=== PATIENT | female | born 1985 | race Caucasian/White ===

== ENCOUNTER 2016-10-17 09:08 | Emergency (ER) | payer SELFPAY ==
[~2016-10-17 09:08] MED LIST: DEPO-PROVER150 MG/ML IM; IBUPROFEN200 M1 PO; PERCOCET1 TA1 PO; SEROQUEL100 MG PO; VISTARIL25 MG PO
--- NOTE | 2016-10-17 10:18 | ED NURSING NOTES ---
Clinical Report - Nurses [facility] [address] [place] [address] 10/17/2016 9:09 Patient: LUCRECIA FLORES TRIAGE Triage time 09:56 Oct 17 2016. Acuity: LEVEL 4. Chief Complaint: NECK PAIN. Alert. No acute distress. KULDEEP COMA SCORE: [place] Coma Scale: 15- eyes open spontaneously (4); best verbal response- oriented x 4 (5); best motor response- obeys commands (6). --10:03 Kira Kirby R.N. 09:56 10/17/16. BP: 149/88. HR: 132. RR: 18. O2 saturation: 100%. Temp: 98.2 F. Pain level now 07/23. --10:03 Kira Kirby R.N. Weight: 58.9 kg stated. Height/Length: 62 inches Per Patient. BMI: 23.8. --09:56 Kira Kirby R.N. Medications Depo-Provera Intramuscular, every three months. Ibuprofen Oral, as needed. SEROquel Oral. Vistaril Oral 25 mg, at bedtime. --10:00 Kira Kirby R.N. Melatonin Oral. --10:01 Kira Kirby R.N. Medication/allergy information source: the patient. --10:03 Kira Kirby R.N. Allergies Hydrocodone.(nausea) --10:00 Kira Kirby R.N. History Arrived by private vehicle. Historian: patient. Primary physician ([facility]). ( Sledding yesterday, fell off sled, had LOC pt states, c/o neck pain. 07/23. Took a Ibuprofen.). This started yesterday. History of recent trauma- (sledding accident). 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 PAST MEDICAL HX: Tetanus status: up-to-date. Immunizations: up-to-date and seasonal influenza. Last normal menstrual period- depo. Uses depo implants. Denies current . SOCIAL HX: Smoker- current status unknown (cigarette). Occasional alcohol use. No drug use. FALL RISK ASSESSMENT: Fall risk assessment completed. No fall risk identified. NUTRITIONAL RISK ASSESSMENT: The nutritional risk assessment revealed no deficiencies. FUNCTIONAL ASSESSMENT: Functional assessment: no impairments noted. LEARNING NEEDS ASSESSMENT: The learning needs assessment revealed no barriers. SKIN INTEGRITY ASSESSMENT: Skin integrity risk assessment completed. No skin integrity risk identified. --10:03 Kira Kirby R.N. PROBLEMS: Hypertension. Vomiting. Hernia. Bronchitis. Pneumonia. Bronchiolitis. Neck Pain. Tension-Type Headache. Myofascial Strain. Cervical Strain. Back Pain. Abdominal Pain. Gastroenteritis. Abnormal Test. Chronic Headache. Lumbar Strain. UTI - Urinary Tract Infection. Migraine Headache. Headache. Contact Dermatitis. Immunizations. LNMP - Last Normal Menstrual Period. --10:02 Kira Kirby R.N. ADDITIONAL SURGERIES: Hernia Repair. Umbilical Hernia Repair. Urologic Surgery at 2 years. --10:02 Kira Kirby R.N. Interventions ID band on patient. To room. --10:03 Kira Kirby R.N. DISPOSITION / DISCHARGE Condition at departure: improved. No learning barriers present. Discharge instructions provided and reviewed with the patient. Reviewed medication(s) side effects, precautions, dosing and course information. Prescription(s) given to the patient. Patient verbalized understanding. Written instructions provided in [place]. The patient was discharged home. She left the Emergency Department ambulatory and via private vehicle. Patient driving. Medication list reviewed and validated. --10:46 Oralia Seo R.N. 10:44 10/17/16. BP: 144/93. HR: 124. RR: 20. O2 saturation: 100%. Temp: deferred. Pain level now: 12/21. 09:56 10/17/16. BP: 149/88. HR: 132. RR: 18. O2 saturation: 100%. Temp: 98.2 F. Pain level now 07/23. --10:46 Oralia Seo R.N. Locked/Released at 10/17/2016 10:46 by Oralia Seo R.N.
--- NOTE | 2016-10-17 10:18 | ED NURSING NOTES ---
Clinical Report - Nurses [facility] [address] [place] [address] 10/17/2016 9:09 Patient: LUCRECIA FLORES TRIAGE Triage time 09:56 Oct 17 2016. Acuity: LEVEL 4. Chief Complaint: NECK PAIN. Alert. No acute distress. KULDEEP COMA SCORE: [place] Coma Scale: 15- eyes open spontaneously (4); best verbal response- oriented x 4 (5); best motor response- obeys commands (6). --10:03 Kira Kirby R.N. 09:56 10/17/16. BP: 149/88. HR: 132. RR: 18. O2 saturation: 100%. Temp: 98.2 F. Pain level now 07/23. --10:03 Kira Kirby R.N. Weight: 58.9 kg stated. Height/Length: 62 inches Per Patient. BMI: 23.8. --09:56 Kira Kirby R.N. Medications Depo-Provera Intramuscular, every three months. Ibuprofen Oral, as needed. SEROquel Oral. Vistaril Oral 25 mg, at bedtime. --10:00 Kira Kirby R.N. Melatonin Oral. --10:01 Kira Kirby R.N. Medication/allergy information source: the patient. --10:03 Kira Kirby R.N. Allergies Hydrocodone.(nausea) --10:00 Kira Kirby R.N. History Arrived by private vehicle. Historian: patient. Primary physician ([facility]). ( Sledding yesterday, fell off sled, had LOC pt states, c/o neck pain. 07/23. Took a Ibuprofen.). This started yesterday. History of recent trauma- (sledding accident). 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 PAST MEDICAL HX: Tetanus status: up-to-date. Immunizations: up-to-date and seasonal influenza. Last normal menstrual period- depo. Uses depo implants. Denies current . SOCIAL HX: Smoker- current status unknown (cigarette). Occasional alcohol use. No drug use. FALL RISK ASSESSMENT: Fall risk assessment completed. No fall risk identified. NUTRITIONAL RISK ASSESSMENT: The nutritional risk assessment revealed no deficiencies. FUNCTIONAL ASSESSMENT: Functional assessment: no impairments noted. LEARNING NEEDS ASSESSMENT: The learning needs assessment revealed no barriers. SKIN INTEGRITY ASSESSMENT: Skin integrity risk assessment completed. No skin integrity risk identified. --10:03 Kira Kirby R.N. PROBLEMS: Hypertension. Vomiting. Hernia. Bronchitis. Pneumonia. Bronchiolitis. Neck Pain. Tension-Type Headache. Myofascial Strain. Cervical Strain. Back Pain. Abdominal Pain. Gastroenteritis. Abnormal Test. Chronic Headache. Lumbar Strain. UTI - Urinary Tract Infection. Migraine Headache. Headache. Contact Dermatitis. Immunizations. LNMP - Last Normal Menstrual Period. --10:02 Kira Kirby R.N. ADDITIONAL SURGERIES: Hernia Repair. Umbilical Hernia Repair. Urologic Surgery at 2 years. --10:02 Kira Kirby R.N. Interventions ID band on patient. To room. --10:03 Kira Kirby R.N. DISPOSITION / DISCHARGE Condition at departure: improved. No learning barriers present. Discharge instructions provided and reviewed with the patient. Reviewed medication(s) side effects, precautions, dosing and course information. Prescription(s) given to the patient. Patient verbalized understanding. Written instructions provided in Slovak. The patient was discharged home. She left the Emergency Department ambulatory and via private vehicle. Patient driving. Medication list reviewed and validated. --10:46 Oralia Seo R.N. 10:44 10/17/16. BP: 144/93. HR: 124. RR: 20. O2 saturation: 100%. Temp: deferred. Pain level now: 12/21. 09:56 10/17/16. BP: 149/88. HR: 132. RR: 18. O2 saturation: 100%. Temp: 98.2 F. Pain level now 07/23. --10:46 Oralia Seo R.N. Locked/Released at 10/17/2016 10:46 by Oralia Seo R.N.
--- NOTE | 2016-10-17 10:18 | ED CLINICAL REPORT ---
Clinical Report - Physicians/Mid Levels [facility] [address] [place] [address] 10/17/2016 9:09 Patient: LUCRECIA FLORES Arrived- By private vehicle. Historian- patient. HISTORY OF PRESENT ILLNESS Location of injuries- head. Chief Complaint: INJURY TO HEAD and INJURY TO NECK. The injury occurred yesterday. [place] a park. ( Patient reports that she was sledding. Patient reports that she went over a bump and fell. Reports loss of consciousness. Reports the incident occurred yesterday. Patient reports being ambulatory since then. No numbness, teething, weakness. Patient reports that the loss of consciousness was brief. Reports that she had awoken to her friends trying to get her to Wake up.). The patient complains of mild pain. The patient sustained a blow to the head and had loss of consciousness. No neck pain or seizure. Not dazed. REVIEW OF SYSTEMS No hearing loss, nausea, chest pain, depression or weakness. No loss of vision, vomiting, difficulty breathing, bladder dysfunction or laceration. All systems otherwise negative, except as recorded above. PAST HISTORY See nurses notes. Tetanus immunization status is up-to-date. Medications: Melatonin Oral. Depo-Provera Intramuscular, every three months. Ibuprofen Oral, as needed. SEROquel Oral. Vistaril Oral 25 mg, at bedtime. Allergies: Hydrocodone.(nausea). ADDITIONAL NOTES The nursing notes have been reviewed. PHYSICAL EXAM Vital Signs: 10/17/2016 09:56 BP: 149/88. HR: 132. RR: 18. O2 saturation: 100%. Temp: 98.2 F. Blood pressure normal. Oxygen saturation normal. Appearance: Alert. No acute distress. Head: Head non-tender. No swelling of head. No Hernández's sign or raccoon eyes. Eyes: Pupils equal, round and reactive to light. Pupillary exam: Right pupil 3mm, round and reactive to light directly and consensually and with accommodation. Left pupil: 3mm, round and reactive to light directly and consensually and with accommodation. EOM intact. ENT: No hemotympanum. Pharynx abnormal. Dental injury present. No malocclusion. Neck: No decreased ROM or muscle spasm in the neck. No pain with movement of head/neck. Painless ROM. Neck non-tender. No vertebral tenderness. CVS: Heart sounds normal. Pulses normal. Respiratory: Breath sounds normal. Chest nontender. (No bruising or ecchymosis). Abdomen: Soft and nontender. No organomegaly. (no bruising or ecchymosis). Back: No tenderness. ROM normal. No tenderness, vertebral point tenderness or muscle spasm. Skin: Skin intact. Skin warm and dry. Normal skin color. Normal skin turgor. Extremities: Normal inspection. Pelvis stable. Extremities atraumatic. Neuro: Oriented X 3. Mood/affect normal. Speech normal. No motor deficit. Normal gait. No sensory deficit. PROGRESS AND PROCEDURES Course of Care: the patient is a 31-year-old female presenting for evaluation of injury following sledding accident. Patient has no neurovascular compromise at this time. Had discussion with patient in regards to symptoms. Loss of consciousness was brief. Patient is not having any nausea and vomiting. Had discussion with patient in regards to risks and benefits of CT scan. Patient declines CT scan at this time after having discussion with risks of radiation exposure and potential cancer later on in life. Patient reports that the incident occurred yesterday and feels that something would've happened if there was a significant injury. Patient is appropriate and alert and oriented. Do not fill in force patient to undergo invasive medical procedures that carries substantial risks at this time. Patient ports that she is just here because herfriends have told her to go to the emergency department for evaluation. Patient is neurovascularly intact. Upon discharge and reevaluation, patient is still noted to be tachycardic. Had discussion with patient in regards to tachycardia. Patient states that she is just feels anxious and would like to go home. Did not feel can keep patient here in the hospital against her will. Had discussion about return precautions and what to look out for. Discussed the patient workup, diagnosis, home care, follow-up, and return precautions. All questions answered. The patient expressed understanding of these instructions and was agreeable to them. Disposition: Discharged. Condition: good. CLINICAL IMPRESSION 10/17/2016 09:56 BP: 149/88. HR: 132. RR: 18. O2 saturation: 100%. Temp: 98.2 F. Blood pressure normal. Oxygen saturation normal. Minor closed head injury. Loss of consciousness for less than one minute. Memory loss. INSTRUCTIONS Warnings: TETANUS: You were given a tetanus shot during your visit. Make a note for future reference. GENERAL WARNINGS: Return or contact your physician immediately if your condition worsens or changes unexpectedly, if not improving as expected, or if other problems arise. Specifically return if pain, vomiting, bleeding, breathing difficulty or fever. abnormal behavior, vision changes, or other concerns. Your Current Medications: CONTINUE TAKING THE FOLLOWING MEDICATIONS: Depo-Provera Intramuscular : every three months. Ibuprofen Oral : prn. Melatonin Oral. SEROquel Oral. Vistaril Oral : 25 mg at bedtime. Prescription Medications: Zofran ODT 4 mg: take 1 orally every 8 hours as needed for nausea and vomiting. Dispense ten (10). No refill. Substitution is permissible. Hydrocodone/APAP 5mg / 325mg: take 1 orally every 6 hours as needed for pain. Dispense twelve (12). No refill. Follow-up: Return to the emergency department as needed. Follow up with your doctor in three days. Reason for referral: recheck today's concerns. Summary of care provided to via paper. Screening today revealed the patient's blood pressure to be in the normal range. Understanding of the discharge instructions verbalized by patient. (Electronically signed by Bennett Dumont Dr. 10/23/2016 13:43)
--- NOTE | 2016-10-23 13:44 | ED MAR SUMMARY ---
..... Medication Administration Record [facility] [address] [place], [place] [id number] Patient: LUCRECIA FLORES Visit ID: [id number] 31y, F Weight: 58.9 kg Height/Length: 62 in BMI: 23.8 ALLERGIES: Hydrocodone
--- NOTE | 2016-10-23 13:44 | ED MAR SUMMARY ---
..... Medication Administration Record Merged With [facility] [address] [place], [place] [id number] Patient: LUCRECIA FLORES Visit ID: [id number] 31y, F Weight: 58.9 kg Height/Length: 62 in BMI: 23.8 ALLERGIES: Hydrocodone
--- NOTE | 2016-10-23 13:44 | ED DISCHARGE INSTRUCTIONS ---
Patient: LUCRECIA FLORES General Instructions [facility] VisitID: [id number] [place] [address] 31y, F Registration Date/Time: 10/17/2016 10/17/2016 09:56 BP: 149/88. HR: 132. RR: 18. O2 saturation: 100%. Temp: 98.2 F. Blood pressure normal. Oxygen saturation normal. Minor closed head injury. Loss of consciousness for less than one minute. Memory loss. INSTRUCTIONS Warnings: TETANUS: You were given a tetanus shot during your visit. Make a note for future reference. GENERAL WARNINGS: Return or contact your physician immediately if your condition worsens or changes unexpectedly, if not improving as expected, or if other problems arise. Specifically return if pain, vomiting, bleeding, breathing difficulty or fever. abnormal behavior, vision changes, or other concerns. Your Current Medications: CONTINUE TAKING THE FOLLOWING MEDICATIONS: Depo-Provera Intramuscular : every three months. Ibuprofen Oral : prn. Melatonin Oral. SEROquel Oral. Vistaril Oral : 25 mg at bedtime. Prescription Medications: Zofran ODT 4 mg: take 1 orally every 8 hours as needed for nausea and vomiting. Dispense ten (10). No refill. Substitution is permissible. Hydrocodone/APAP 5mg / 325mg: take 1 orally every 6 hours as needed for pain. Dispense twelve (12). No refill. Follow-up: Return to the emergency department as needed. Follow up with your doctor in three days. Reason for referral: recheck today's concerns. Summary of care provided to via paper. Screening today revealed the patient's blood pressure to be in the normal range. Understanding of the discharge instructions verbalized by patient. ADDITIONAL INFORMATION Head Injury, No Wake-Up (Adult) You have had a head injury. It does not appear serious at this time. Symptoms of a more serious problem (concussion, bruising, or bleeding in the brain) may appear later. Therefore, watch for the WARNING SIGNS listed below. Home Care: Your healthcare provider will tell you whether its okay to drive. If so, you can drive yourself home. For the next day or so, be careful when driving or using heavy machinery until you are sure you have no delayed symptoms. During the next 24 hours someone must stay with you to check for the signs below. It is not necessary to stay awake or be awakened during the night. If you have swelling of the face or scalp, apply an ice pack (ice cubes in a plastic bag, wrapped in a towel) for 20 minutes. Do this every 1-2 hours until the swelling starts to go down. Do not use aspirin or ibuprofen (Motrin, Advil) after a head injury.You may use acetaminophen (Tylenol)to control pain, unless another pain medicine was prescribed. [NOTE: If you have chronic liver or kidney disease or ever had a stomach ulcer or GI bleeding, talk with your doctor before using these medicines.] For the next 24 hours: Do not take alcohol, sedatives or medicines that make you sleepy. Avoid strenuous activities. No lifting or straining. If you have had any symptoms of a concussion today (nausea, vomiting, dizziness, confusion, headache, memory loss or if you were knocked out), do not return to sports or any activity that could result in another head injury until all symptoms are gone and you have been cleared by your doctor. A second head injury before fully recovering from the first one can lead to serious brain injury. Follow Up with your doctor if symptoms are not improving after 24 hours, or as directed. [NOTE: A radiologist will review any X-rays or CT scans that were taken. We will notify you of any new findings that may affect your care.] Get Prompt Medical Attention if any of the followingWARNING SIGNS occur: Repeated vomiting Severe or worsening headache or dizziness Unusual drowsiness, or unable to awaken as usual Confusion or change in behavior or speech, memory loss, blurred vision Convulsion (seizure) Increasing scalp or face swelling Redness, warmth or pus from the swollen area Fluid drainage or bleeding from the nose or ears Concussion (No Wake-Up) A concussion happens when you hit your head with enough force to shake up the brain. This may cause you to lose consciousness be "knocked out" - but not always. Depending on how hard you hit your head, it will take from a few hours up to a few days to get better. Sometimes symptoms may last a few months or longer. This is called post-concussion syndrome. At first, you may have a headache, nausea, vomiting, or dizziness. You may also have problems concentrating or remembering things. This is normal. Symptoms should get better as the hours and days go by. Symptoms that get worse could be a sign of a more serious injury. This might be a bruise or bleeding in the brain. Thats why its important to watch for the warning signs listed below. Home care Follow these tips to help care for yourself at home: During the next day (24 hours) someone must stay with you to check for the signs below. If your face or scalp swells, apply an ice pack for 20 minutes every 1 to 2 hours. Do this until the swelling starts to go down. You can make an ice pack by putting ice cubes in a plastic bag and wrapping the bag in a towel. for 20 minutes every 1-2 hours until the swelling starts to go down. You may use acetaminophen to control pain, unless another pain medicine was prescribed. If you have chronic liver or kidney disease, talk with your doctor before using these medicines. Also talk with your doctor if you ever had a stomach ulcer or GI bleeding. For the next 24 hours: Dont drink alcohol or take sedatives or medicines that make you sleepy. Dont drive or operate machinery. Avoid doing anything strenuous. Dont lift or strain. Dont return to sports or any activity that could cause you to hit your head until all symptoms are gone and you have been cleared by your doctor. A second head injury before fully recovering from the first one can lead to serious brain injury. Follow-up care Follow up with your doctor in 1 week, or as directed. Note: A radiologist will review any X-rays or CT scans that were taken. You will be told of any new findings that may affect your care. When to seek medical care Get prompt medical attention if any of these occur: Repeated vomiting Headache or dizziness that is severe or gets worse Unusual drowsiness, or unable to wake up as usual Confusion or change in behavior or speech, or memory loss Blurred vision Convulsion (seizure) Swelling on the scalp or face that gets worse Redness, warmth, or pus from the swollen area Fluid draining from or bleeding from the nose or ears Ondansetron Oral disintegrating tablet What is this medicine? ONDANSETRON (on MARIANA se tobias) is used to treat nausea and vomiting caused by chemotherapy. It is also used to prevent or treat nausea and vomiting after surgery. How should I use this medicine? These tablets are made to dissolve in the mouth. Do not try to push the tablet through the foil backing. With dry hands, peel away the foil backing and gently remove the tablet. Place the tablet in the mouth and allow it to dissolve, then swallow. While you may take these tablets with water, it is not necessary to do so. Talk to your medical interpreter regarding the use of this medicine in children. Special care may be needed. What side effects may I notice from receiving this medicine? Side effects that you should report to your doctor or health healthcare network pricing consultant as soon as possible: allergic reactions like skin rash, itching or hives, swelling of the face, lips, or tongue breathing problems dizziness fast or irregular heartbeat feeling faint or lightheaded, falls fever and chills swelling of the hands and feet tightness in the chest Side effects that usually do not require medical attention (report to your doctor or health healthcare network pricing consultant if they continue or are bothersome): constipation or diarrhea headache What may interact with this medicine? Do not take this medicine with any of the following medications: -apomorphine -cisapride -dofetilide -dronedarone -pimozide -thioridazine -ziprasidone This medicine may also interact with the following medications: -carbamazepine -phenytoin -rifampicin -tramadol -other medicines that prolong the QT interval (cause an abnormal heart rhythm) What if I miss a dose? If you miss a dose, take it as soon as you can. If it is almost time for your next dose, take only that dose. Do not take double or extra doses. Where should I keep my medicine? Keep out of the reach of children. Store between 2 and 30 degrees C (36 and 86 degrees F). Throw away any unused medicine after the expiration date. What should I tell my health care provider before I take this medicine? They need to know if you have any of these conditions: heart disease history of irregular heartbeat liver disease low levels of magnesium or potassium in the blood an unusual or allergic reaction to ondansetron, granisetron, other medicines, foods, dyes, or preservatives or trying to get breast-feeding What should I watch for while using this medicine? Check with your doctor or health healthcare network pricing consultant as soon as you can if you have any sign of an allergic reaction. Hydrocodone Bitartrate, Acetaminophen Oral tablet What is this medicine? ACETAMINOPHEN; HYDROCODONE (a set a FAISAL tip fen; caroline droe KOE done) is a pain reliever. It is used to treat mild to moderate pain. How should I use this medicine? Take this medicine by mouth. Swallow it with a full glass of water. Follow the directions on the prescription label. If the medicine upsets your stomach, take the medicine with food or milk. Do not take more than you are told to take. Talk to your medical interpreter regarding the use of this medicine in children. This medicine is not approved for use in children. What side effects may I notice from receiving this medicine? Side effects that you should report to your doctor or health healthcare network pricing consultant as soon as possible: allergic reactions like skin rash, itching or hives, swelling of the face, lips, or tongue breathing problems confusion feeling faint or lightheaded, falls stomach pain yellowing of the eyes or skin Side effects that usually do not require medical attention (report to your doctor or health healthcare network pricing consultant if they continue or are bothersome): nausea, vomiting stomach upset What may interact with this medicine? alcohol antihistamines isoniazid medicines for depression, anxiety, or psychotic disturbances medicines for sleep muscle relaxants naltrexone narcotic medicines (opiates) for pain phenobarbital ritonavir tramadol What if I miss a dose? If you miss a dose, take it as soon as you can. If it is almost time for your next dose, take only that dose. Do not take double or extra doses. Where should I keep my medicine? Keep out of the reach of children. This medicine can be abused. Keep your medicine in a safe place to protect it from theft. Do not share this medicine with anyone. Selling or giving away this medicine is dangerous and against the law. Store at room temperature between 15 and 30 degrees C (59 and 86 degrees F). Protect from light. Keep container tightly closed. Throw away any unused medicine after the expiration date. Discard unused medicine and used packaging carefully. Pets and children can be harmed if they find used or lost packages. What should I tell my health care provider before I take this medicine? They need to know if you have any of these conditions: brain tumor Crohn's disease, inflammatory bowel disease, or ulcerative colitis drink more than 3 alcohol-containing drinks per day drug abuse or addiction head injury heart or circulation problems kidney disease or problems going to the bathroom liver disease lung disease, asthma, or breathing problems an unusual or allergic reaction to acetaminophen, hydrocodone, other opioid analgesics, other medicines, foods, dyes, or preservatives or trying to get breast-feeding What should I watch for while using this medicine? Tell your doctor or health healthcare network pricing consultant if your pain does not go away, if it gets worse, or if you have new or a different type of pain. You may develop tolerance to the medicine. Tolerance means that you will need a higher dose of the medicine for pain relief. Tolerance is normal and is expected if you take the medicine for a long time. Do not suddenly stop taking your medicine because you may develop a severe reaction. Your body becomes used to the medicine. This does NOT mean you are addicted. Addiction is a behavior related to getting and using a drug for a non-medical reason. If you have pain, you have a medical reason to take pain medicine. Your doctor will tell you how much medicine to take. If your doctor wants you to stop the medicine, the dose will be slowly lowered over time to avoid any side effects. You may get drowsy or dizzy when you first start taking the medicine or change doses. Do not drive, use machinery, or do anything that may be dangerous until you know how the medicine affects you. Stand or sit up slowly. There are different types of narcotic medicines (opiates) for pain. If you take more than one type at the same time, you may have more side effects. Give your health care provider a list of all medicines you use. Your doctor will tell you how much medicine to take. Do not take more medicine than directed. Call emergency for help if you have problems breathing. The medicine will cause constipation. Try to have a bowel movement at least every 2 to 3 days. If you do not have a bowel movement for 3 days, call your doctor or health healthcare network pricing consultant. Too much acetaminophen can be very dangerous. Do not take Tylenol (acetaminophen) or medicines that contain acetaminophen with this medicine. Many non-prescription medicines contain acetaminophen. Always read the labels carefully. You have been given the following additional information: HEAD INJURY, No Wake-Up (Adult) Concussion, No Wake-Up Ondansetron Oral disintegrating tablet Hydrocodone Bitartrate, Acetaminophen Oral tablet (Electronically signed by Bennett Dumont Dr. 10/23/2016 13:43)
--- NOTE | 2016-10-23 13:44 | ED MED RECONCILIATION SUMMARY ---
Patient: LUCRECIA FLORES Medication Reconciliation Report [facility] VisitID: [id number] [address] [place] [address] 31y, F Registration Date/Time: 10/17/2016 Weight: 58.9 kg Height/Length: 62 in. BMI: 23.8 ALLERGIES: Hydrocodone The patient's Home Medications are listed below: CONTINUE TAKING THE FOLLOWING MEDICATIONS: Depo-Provera Intramuscular, every three months Ibuprofen Oral Melatonin Oral SEROquel Oral Vistaril Oral 25 mg, at bedtime The source(s) of the original Home Medication information: patient The following Medications were given to the patient in the Emergency Department: None. The following Medications were prescribed to the patient: Zofran ODT 4 mg: take 1 orally every 8 hours as needed for nausea and vomiting. Dispense ten (10). No refill. Substitution is permissible. -- Bennett Dumont Dr. Hydrocodone/APAP 5mg / 325mg: take 1 orally every 6 hours as needed for pain. Dispense twelve (12). No refill. -- Bennett Dumont Dr.
--- NOTE | 2016-10-23 13:44 | ED MED RECONCILIATION SUMMARY ---
Patient: LUCRECIA FLORES Medication Reconciliation Report [facility] VisitID: [id number] [address] [place] [address] 31y, F Registration Date/Time: 10/17/2016 Weight: 58.9 kg Height/Length: 62 in. BMI: 23.8 ALLERGIES: Hydrocodone The patient's Home Medications are listed below: CONTINUE TAKING THE FOLLOWING MEDICATIONS: Depo-Provera Intramuscular, every three months Ibuprofen Oral Melatonin Oral SEROquel Oral Vistaril Oral 25 mg, at bedtime The source(s) of the original Home Medication information: patient The following Medications were given to the patient in the Emergency Department: None. The following Medications were prescribed to the patient: Zofran ODT 4 mg: take 1 orally every 8 hours as needed for nausea and vomiting. Dispense ten (10). No refill. Substitution is permissible. -- Bennett Dumont Dr. Hydrocodone/APAP 5mg / 325mg: take 1 orally every 6 hours as needed for pain. Dispense twelve (12). No refill. -- Bennett Dumont Dr.
== END 2016-10-17 10:42 | disposition home or self-care (01) ==
LOC: ED SRH 09:08
DX: S06.9X1A Unspecified intracranial injury with loss of consciousness of 30 minutes or less, initial encounter (principal); R41.3 Other amnesia; V00.221A Fall from sled, initial encounter; Y93.23 Activity, snow (alpine) (downhill) skiing, snowboarding, sledding, tobogganing and snow tubing; Y92.830 Public park as the place of occurrence of the external cause; Y99.9 Unspecified external cause status; I10 Essential (primary) hypertension; Z79.899 Other long term (current) drug therapy; Z88.5 Allergy status to narcotic agent

== ENCOUNTER 2016-11-01 01:17 | Emergency (ER) | payer SELFPAY ==
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
--- NOTE | 2016-11-01 08:28 | ED ORDER SUMMARY ---
..... Patient: LUCRECIA FLORES OrderSheet [facility] VisitID: [id number] [address] [place] [address] 31y, F Registration Date/Time: 11/01/2016 ORDER SHEET Weight: 58.9 kg (stated) Allergies: Hydrocodone GENERAL ORDERS: MEDICATION ORDERS: Motrin PO 600 mg (NOW) (02:45 11/01/2016 Maurilio Peres) (2:53 HSoule) IV FLUIDS: ORDER SHEET NOTES: [Electronically signed by Edda Morley R.N. (03:17 11/01/2016)] [Electronically signed by Bennett Dumont Dr. (08:28 11/01/2016)] [Electronically locked/signed by Edda Morley R.N. (03:17 11/01/2016)]
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
--- NOTE | 2016-11-01 08:28 | ED MED RECONCILIATION SUMMARY ---
Patient: LUCRECIA FLORES Medication Reconciliation Report [facility] VisitID: [id number] [address] [place] [address] 31y, F Registration Date/Time: 11/01/2016 Weight: 58.9 kg Height/Length: 62 in. BMI: 23.8 ALLERGIES: Hydrocodone The patient's Home Medications are listed below: CONTINUE TAKING THE FOLLOWING MEDICATIONS: Depo-Provera Intramuscular, every three months Ibuprofen Oral Melatonin Oral Percocet Oral Suboxone Sublingual Vistaril Oral 25 mg, at bedtime The source(s) of the original Home Medication information: Not obtained. The following Medications were given to the patient in the Emergency Department: Motrin [PO] PO 600 mg, administered: 11/01/2016 2:48:00 AM The following Medications were prescribed to the patient: Acetaminophen (available over the counter): take according to label instructions. -- Bennett Dumont Dr. Motrin (available over the counter): take according to label instructions. -- Bennett Dumont Dr.
--- NOTE | 2016-11-01 08:28 | ED MAR SUMMARY ---
..... Medication Administration Record [facility] [address] [place] [address] Patient: LUCRECIA FLORES Visit ID: [id number] 31y, F Weight: 58.9 kg Height/Length: 62 in BMI: 23.8 ALLERGIES: Hydrocodone Given 02:48 11/01/2016 Sally Steiner, Medication Administered: MOTRIN [PO], Dose: 600 mg Tablets PO. Medication Ordered: Motrin PO 600 mg (NOW).
--- NOTE | 2016-11-01 08:28 | ED ORDER SUMMARY ---
..... Patient: LUCRECIA FLORES OrderSheet [facility] VisitID: [id number] [address] [place] [address] 31y, F Registration Date/Time: 11/01/2016 ORDER SHEET Weight: 58.9 kg (stated) Allergies: Hydrocodone GENERAL ORDERS: MEDICATION ORDERS: Motrin PO 600 mg (NOW) (02:45 11/01/2016 Maurilio Peres) (2:53 HSoule) IV FLUIDS: ORDER SHEET NOTES: [Electronically signed by Edda Morley R.N. (03:17 11/01/2016)] [Electronically signed by Bennett Dumont Dr. (08:28 11/01/2016)] [Electronically locked/signed by Edda Morley R.N. (03:17 11/01/2016)]
--- NOTE | 2016-11-01 08:28 | ED MED RECONCILIATION SUMMARY ---
Patient: LUCRECIA FLORES Medication Reconciliation Report [facility] VisitID: [id number] [address] [place] [address] 31y, F Registration Date/Time: 11/01/2016 Weight: 58.9 kg Height/Length: 62 in. BMI: 23.8 ALLERGIES: Hydrocodone The patient's Home Medications are listed below: CONTINUE TAKING THE FOLLOWING MEDICATIONS: Depo-Provera Intramuscular, every three months Ibuprofen Oral Melatonin Oral Percocet Oral Suboxone Sublingual Vistaril Oral 25 mg, at bedtime The source(s) of the original Home Medication information: Not obtained. The following Medications were given to the patient in the Emergency Department: Motrin [PO] PO 600 mg, administered: 11/01/2016 2:48:00 AM The following Medications were prescribed to the patient: Acetaminophen (available over the counter): take according to label instructions. -- Bennett Dumont Dr. Motrin (available over the counter): take according to label instructions. -- Bennett Dumont Dr.
--- NOTE | 2016-11-01 08:28 | ED MAR SUMMARY ---
..... Medication Administration Record [facility] [address] [place] [address] Patient: LUCRECIA FLORES Visit ID: [id number] 31y, F Weight: 58.9 kg Height/Length: 62 in BMI: 23.8 ALLERGIES: Hydrocodone Given 02:48 11/01/2016 Salyl Steiner, Medication Administered: MOTRIN [PO], Dose: 600 mg Tablets PO. Medication Ordered: Motrin PO 600 mg (NOW).
== END 2016-11-01 03:16 ==
LOC: ED SRH 01:17
DX: S09.90XA Unspecified injury of head, initial encounter (principal); V89.2XXA Person injured in unspecified motor-vehicle accident, traffic, initial encounter; Y93.I9 Activity, other involving external motion; Y92.410 Unspecified street and highway as the place of occurrence of the external cause; Y99.9 Unspecified external cause status; F17.200 Nicotine dependence, unspecified, uncomplicated; Z88.5 Allergy status to narcotic agent

== ENCOUNTER 2016-11-12 11:46 | Emergency (ER) | payer SELFPAY ==
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
--- NOTE | 2016-11-12 13:17 | ED CLINICAL REPORT ---
Clinical Report - Physicians/Mid Levels [facility] [address] [place] [address] 11/12/2016 11:46 Patient: LUCRECIA FLORES Time Seen: 13:46 Nov 12 2016. Arrived- By private vehicle. Historian- patient. HISTORY OF PRESENT ILLNESS Chief Complaint: NECK PAIN. Onset was just prior to arrival and it is still present. The quality is noted to be "pain". Additional history - 31-year-old female with neck pain over the last 4 days, with associated pain to her head, pain worsens with any movement, onset was upon awakening on Saturday the 27, pain is somewhat relieved with high-dose Motrin, patient has attended ice and heat to the area. Reports history of similar. In addition she had her younger child, step on her neck while she was laying on the floor, which did not alleviate her pain, rather worsen such. Denies any radiation of pain. H/O similar neck pain. Patient notes the possibility of an injury. REVIEW OF SYSTEMS No fever, chills, sore throat, cough or difficulty with urination. No urinary frequency or vaginal discharge. She has had a headache (off/ on). No nausea, vomiting, fever, prodromal symptoms or photophobia. No visual disturbances, numbness or weakness. All systems otherwise negative, except as recorded above. SOCIAL HISTORY Smoker- current status unknown. Alcohol use. No drug use. ADDITIONAL NOTES The nursing notes have been reviewed. PHYSICAL EXAM Vital Signs: 11/12/2016 12:45 BP: 132/84. HR: 77. RR: 14. O2 saturation: 98%. Temp: 98.2 F. Pain level now: 8/10. Appearance: Alert. No acute distress. Neck: Pain in the neck upon movement. Muscle spasm of the neck. No decreased ROM in the neck. No vertebral tenderness. Soft tissue tenderness. No meningeal signs. CVS: Normal heart rate and rhythm. Heart sounds normal. Respiratory: No respiratory distress. Breath sounds normal. No chest wall injury. Abdomen: Soft. Back: Normal inspection. No tenderness. Painless ROM. No vertebral point tenderness. Neuro: Oriented X 3. Mood/affect normal. No motor deficit. No sensory deficit. PROGRESS AND PROCEDURES Course of Care: There are no risks for spinal epidural abscess or hematoma as patient is without any risk factors such as IVDA or evidence of active infection, no midline tenderness to percussion. Hence I do not feel emergent imaging with an MRI is indicated. However I did discuss with the patient that if these symptoms develop, or if the pain does not resolve an MRI may need to be done outpatient, or in the ED if symptoms worsen acutely or new onset of the above mentioned symptoms develop. Patient is stable. Physical exam findings are improved. Symptoms better. Disposition: Discharged. CLINICAL IMPRESSION Acute cervical strain. INSTRUCTIONS Limit lifting. No strenuous activity. Rest. Prescription Medications: Valium 2 mg: take 1 orally every 12 hours for 5 days as needed for muscle spasm. Dispense ten (10). No refill. Substitution is permissible. Ultram 50 mg: take 1 orally every 6 hours for 3 days. Dispense fifteen (15). One refill. Substitution is permissible. Follow-up: Follow up with your doctor in four days. (Electronically signed by Collette Hawk P.A.-C 11/12/2016 13:50)
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
--- NOTE | 2016-11-12 13:53 | ED MED RECONCILIATION SUMMARY ---
Patient: LUCRECIA FLORES Medication Reconciliation Report [facility] VisitID: [id number] [address] [place] [address] 31y, F Registration Date/Time: 11/12/2016 Weight: 63.5 kg Height/Length: 62 in. BMI: 25.6 ALLERGIES: Hydrocodone The patient's Home Medications are listed below: THE FOLLOWING MEDICATIONS NEED TO BE RECONCILED: Depo-Provera Intramuscular, every three months Ibuprofen Oral Melatonin Oral Vistaril Oral 25 mg, at bedtime The source(s) of the original Home Medication information: patient The following Medications were given to the patient in the Emergency Department: None. The following Medications were prescribed to the patient: Valium 2 mg: take 1 orally every 12 hours for 5 days as needed for muscle spasm. Dispense ten (10). No refill. Substitution is permissible. -- Collette Hawk, P.A.-C Ultram 50 mg: take 1 orally every 6 hours for 3 days. Dispense fifteen (15). One refill. Substitution is permissible. -- Collette Hawk, P.A.-C
--- NOTE | 2016-11-12 13:53 | ED MED RECONCILIATION SUMMARY ---
Patient: LUCRECIA FLORES Medication Reconciliation Report [facility] VisitID: [id number] [address] [place] [address] 31y, F Registration Date/Time: 11/12/2016 Weight: 63.5 kg Height/Length: 62 in. BMI: 25.6 ALLERGIES: Hydrocodone The patient's Home Medications are listed below: THE FOLLOWING MEDICATIONS NEED TO BE RECONCILED: Depo-Provera Intramuscular, every three months Ibuprofen Oral Melatonin Oral Vistaril Oral 25 mg, at bedtime The source(s) of the original Home Medication information: patient The following Medications were given to the patient in the Emergency Department: None. The following Medications were prescribed to the patient: Valium 2 mg: take 1 orally every 12 hours for 5 days as needed for muscle spasm. Dispense ten (10). No refill. Substitution is permissible. -- Collette Hawk, P.A.-C Ultram 50 mg: take 1 orally every 6 hours for 3 days. Dispense fifteen (15). One refill. Substitution is permissible. -- Collette Hawk, P.A.-C
--- NOTE | 2016-11-12 13:53 | ED DISCHARGE INSTRUCTIONS ---
Patient: LUCRECIA FLORES General Instructions [facility] VisitID: [id number] [place] [address] 31y, F Registration Date/Time: 11/12/2016 Acute cervical strain. INSTRUCTIONS Limit lifting. No strenuous activity. Rest. Prescription Medications: Valium 2 mg: take 1 orally every 12 hours for 5 days as needed for muscle spasm. Dispense ten (10). No refill. Substitution is permissible. Ultram 50 mg: take 1 orally every 6 hours for 3 days. Dispense fifteen (15). One refill. Substitution is permissible. Follow-up: Follow up with your doctor in four days. ADDITIONAL INFORMATION Neck Sprain Or Strain A sudden force that causes turning or bending of the neck (such as in a car accident) can stretch or tear muscles (strain) and ligaments (sprain) and cause neck pain. Sometimes neck pain occurs after a simple awkward movement. In either case, muscle spasm is commonly present and contributes to the pain. Unless you had a forceful physical injury (for example, a car accident or fall), X-rays are usually not ordered for the initial evaluation of neck pain. If pain continues and dose not respond to medical treatment, X-rays and other tests may be performed at a later time. Home care The following guidelines will help you care for your injury at home: You may feel more soreness and spasm the first few days after the injury. Reduce your activity level until symptoms begin to improve. When lying down, use a comfortable pillow that supports the head and keeps the spine in a neutral position. The position of the head should not be tilted forward or backward. Use ice packs (ice in a plastic bag, wrapped in a towel) to treat acute pain. Apply for 20 minutes every 24 hours during the first two days. Then, begin local heat (hot shower, hot bath or heating pad) andmassageto reduce muscle spasm. Some patients feel best alternating hot and cold treatments, or just staying with one method only. Do what feels the best to you and gives the most relief. You may use acetaminophen or ibuprofen to control pain, unless another pain medicine was prescribed.If you have chronic liver or kidney disease or ever had a stomach ulcer or GI bleeding, talk with your doctor before using these medicines. Follow-up care Follow up with your physician or this facility if your symptoms do not show signs of improvement. Physical therapy may be needed. If you had X-rays today, they didnt show any broken bones, breaks, or fractures. Sometimes fractures dont show up on the first X-ray. Bruises and sprains can sometimes hurt as much as a fracture. These injuries can take time to heal completely. If your symptoms dont improve or they get worse, talk with your doctor. You may need a repeat X-ray. When to seek medical care Get prompt medical attention if any of the following occur: Pain becomes worse or spreads into your arms Weakness or numbness in one or both arms Neck Pain [No Trauma] There are several possible causes of neck pain without injury: You can get a minor ligament sprain or muscle strain from a sudden minor neck movement. Sleeping with your neck in an awkward position can also cause this. Some persons respond to emotional stress by tensing the muscles of their neck, shoulders and upper back. Chronic spasm in these muscles can cause neck pain and sometimes headaches. Gradualwear and tearof the joints in the spine can cause degenerative arthritis.This can be a source of occasional or chronic neck pain. With aging or repeated small injuries to the neck, the spinal disks (the cushions between each spinal bone) may bulge and put pressure on a nearby spinal nerve. This causes tingling, pain or numbness spreading from the neck to the shoulder, arm or hand on one side. Acute neck pain usually gets better in one to two weeks. Neck pain related to disk disease, arthritis in the spinal joints or spinal stenosis (narrowing of the spinal canal) can become chronic and last for months or years. Unless you had a forceful physical injury (for example, a car accident or fall), X-rays are usually not ordered for the initial evaluation of neck pain. If pain continues and does not respond to medical treatment, x-rays and other tests may be performed at a later time. Home Care: Rest and relax the muscles. Use a comfortable pillow that supports the head and keeps the spine in a neutral position. The position of the head should not be tilted forward or backward. A rolled up towel may help for a custom fit. Some persons find relief with heat (hot shower, hot bath or heating pad) and massage, while others prefer cold packs (crushed or cubed ice in a plastic bag, wrapped in a towel) . Try both and use the method that feels best for 20 minutes several times a day. You may use acetaminophen (Tylenol) or ibuprofen (Motrin, Advil) to control pain, unless another medicine was prescribed. [ NOTE : If you have chronic liver or kidney disease or ever had a stomach ulcer or GI bleeding, talk with your doctor before using these medicines.] Follow Up with your physician or this facility if your symptoms do not show signs of improvement after one week. Physical therapy or further tests may be needed. [NOTE: A radiologist will review any X-rays or CT scans that were taken. We will notify you of any new findings that may affect your care.] Get Prompt Medical Attention if any of the following occur: Pain becomes worse or spreads into one or both arms Weakness or numbness in one or both arms Increasing headache Neck swelling, difficulty or painful swallowing Fever of 100.4F (38C) or higher, or as directed by your healthcare provider You have been given the following additional information: Neck Sprain/Strain Neck Pain, No Trauma Limit lifting. No strenuous activity. Rest. (Electronically signed by Collette Hawk P.A.-C 11/12/2016 13:50)
--- NOTE | 2016-11-12 13:53 | ED MAR SUMMARY ---
..... Medication Administration Record [facility] [address] [place], [place] [id number] Patient: LUCRECIA FLORES Visit ID: [id number] 31y, F Weight: 63.5 kg Height/Length: 62 in BMI: 25.6 ALLERGIES: Hydrocodone
--- NOTE | 2016-11-12 13:53 | ED MAR SUMMARY ---
..... Medication Administration Record [facility] [address] [place], [place] [id number] Patient: LUCRECIA FLORES Visit ID: [id number] 31y, F Weight: 63.5 kg Height/Length: 62 in BMI: 25.6 ALLERGIES: Hydrocodone
== END 2016-11-12 13:22 | disposition home or self-care (01) ==
LOC: ED SRH 11:46
DX: M54.2 Cervicalgia (principal); X50.0XXA Overexertion from strenuous movement or load, initial encounter; I10 Essential (primary) hypertension; Z79.899 Other long term (current) drug therapy; Z88.5 Allergy status to narcotic agent

== ENCOUNTER 2016-12-01 09:50 | Emergency (ER) | payer SELFPAY ==
--- NOTE | 2016-12-01 11:13 | ED ORDER SUMMARY ---
..... Patient: LUCRECIA FLORES OrderSheet [facility] VisitID: [id number] [address] [place] [address] 31y, F Registration Date/Time: 12/01/2016 ORDER SHEET Weight: 62.5 kg (stated) Allergies: Hydrocodone GENERAL ORDERS: MEDICATION ORDERS: Toradol IM 60 mg (NOW) (10:32 12/01/2016 Sridhar Peres) (10:45 Kasandra Schmitt) IV FLUIDS: ORDER SHEET NOTES: [Electronically signed by Gregg Lazaro Dr. (10:47 12/01/2016)] [Electronically signed by Celia Castro R.N. (12:48 12/01/2016)] [Electronically locked/signed by Celia Castro R.N. (12:48 12/01/2016)]
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
--- NOTE | 2016-12-01 11:13 | ED ORDER SUMMARY ---
..... Patient: LUCRECIA FLORES OrderSheet [facility] VisitID: [id number] [address] [place] [address] 31y, F Registration Date/Time: 12/01/2016 ORDER SHEET Weight: 62.5 kg (stated) Allergies: Hydrocodone GENERAL ORDERS: MEDICATION ORDERS: Toradol IM 60 mg (NOW) (10:32 12/01/2016 Sridhar Peres) (10:45 Kasandra Schmitt) IV FLUIDS: ORDER SHEET NOTES: [Electronically signed by Gregg Lazaro Dr. (10:47 12/01/2016)] [Electronically signed by Celia Castro R.N. (12:48 12/01/2016)] [Electronically locked/signed by Celia Castro R.N. (12:48 12/01/2016)]
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
--- NOTE | 2016-12-01 12:48 | ED MAR SUMMARY ---
..... Medication Administration Record [facility] [address] [place] [address] Patient: LUCRECIA FLORES Visit ID: [id number] 31y, F Weight: 62.5 kg Height/Length: 62 in BMI: 25.2 ALLERGIES: Hydrocodone Given 10:45 12/01/2016 Celia Castro R.N. Medication Administered: TORADOL [IM] (KETOROLAC TROMETHAMINE), Dose: 60 mg IM. Medication Ordered: Toradol IM 60 mg (NOW).
--- NOTE | 2016-12-01 12:48 | ED DISCHARGE INSTRUCTIONS ---
Patient: LUCRECIA FLORES General Instructions [facility] VisitID: [id number] [address] [place] [address] 31y, F Registration Date/Time: 12/01/2016 Chronic cervical strain. INSTRUCTIONS No lifting greater than 10 lbs until released. Your Current Medications: CONTINUE TAKING THE FOLLOWING MEDICATIONS: Depo-Provera Intramuscular : every three months. Ibuprofen Oral : prn. Melatonin Oral. Vistaril Oral : 25 mg at bedtime. Prescription Medications: Duloxetine 60 mg: take 1 orally every day. Dispense thirty (30). No refills. Follow-up: Screening today revealed the patient's blood pressure to be in the pre-hypertensive range. The patient should follow up with a primary care provider for blood pressure management. Follow-up with: [facility], , , [address], , [place], [address] Follow up in about one week. Call for an appointment. ADDITIONAL INFORMATION Neck Sprain Or Strain A sudden force that causes turning or bending of the neck (such as in a car accident) can stretch or tear muscles (strain) and ligaments (sprain) and cause neck pain. Sometimes neck pain occurs after a simple awkward movement. In either case, muscle spasm is commonly present and contributes to the pain. Unless you had a forceful physical injury (for example, a car accident or fall), X-rays are usually not ordered for the initial evaluation of neck pain. If pain continues and dose not respond to medical treatment, X-rays and other tests may be performed at a later time. Home care The following guidelines will help you care for your injury at home: You may feel more soreness and spasm the first few days after the injury. Reduce your activity level until symptoms begin to improve. When lying down, use a comfortable pillow that supports the head and keeps the spine in a neutral position. The position of the head should not be tilted forward or backward. Use ice packs (ice in a plastic bag, wrapped in a towel) to treat acute pain. Apply for 20 minutes every 24 hours during the first two days. Then, begin local heat (hot shower, hot bath or heating pad) andmassageto reduce muscle spasm. Some patients feel best alternating hot and cold treatments, or just staying with one method only. Do what feels the best to you and gives the most relief. You may use acetaminophen or ibuprofen to control pain, unless another pain medicine was prescribed.If you have chronic liver or kidney disease or ever had a stomach ulcer or GI bleeding, talk with your doctor before using these medicines. Follow-up care Follow up with your physician or this facility if your symptoms do not show signs of improvement. Physical therapy may be needed. If you had X-rays today, they didnt show any broken bones, breaks, or fractures. Sometimes fractures dont show up on the first X-ray. Bruises and sprains can sometimes hurt as much as a fracture. These injuries can take time to heal completely. If your symptoms dont improve or they get worse, talk with your doctor. You may need a repeat X-ray. When to seek medical care Get prompt medical attention if any of the following occur: Pain becomes worse or spreads into your arms Weakness or numbness in one or both arms You have been given the following additional information: Neck Sprain/Strain No lifting greater than 10 lbs until released. (Electronically signed by Gregg Lazaro Dr. 12/01/2016 10:47)
--- NOTE | 2016-12-01 12:48 | ED DISCHARGE INSTRUCTIONS ---
Patient: LUCRECIA FLORES General Instructions VisitID: [id number] [address] [place] [address] 31y, F Registration Date/Time: 12/01/2016 Chronic cervical strain. INSTRUCTIONS No lifting greater than 10 lbs until released. Your Current Medications: CONTINUE TAKING THE FOLLOWING MEDICATIONS: Depo-Provera Intramuscular : every three months. Ibuprofen Oral : prn. Melatonin Oral. Vistaril Oral : 25 mg at bedtime. Prescription Medications: Duloxetine 60 mg: take 1 orally every day. Dispense thirty (30). No refills. Follow-up: Screening today revealed the patient's blood pressure to be in the pre-hypertensive range. The patient should follow up with a primary care provider for blood pressure management. Follow-up with: [facility], , , [address], , [place], [address] Follow up in about one week. Call for an appointment. ADDITIONAL INFORMATION Neck Sprain Or Strain A sudden force that causes turning or bending of the neck (such as in a car accident) can stretch or tear muscles (strain) and ligaments (sprain) and cause neck pain. Sometimes neck pain occurs after a simple awkward movement. In either case, muscle spasm is commonly present and contributes to the pain. Unless you had a forceful physical injury (for example, a car accident or fall), X-rays are usually not ordered for the initial evaluation of neck pain. If pain continues and dose not respond to medical treatment, X-rays and other tests may be performed at a later time. Home care The following guidelines will help you care for your injury at home: You may feel more soreness and spasm the first few days after the injury. Reduce your activity level until symptoms begin to improve. When lying down, use a comfortable pillow that supports the head and keeps the spine in a neutral position. The position of the head should not be tilted forward or backward. Use ice packs (ice in a plastic bag, wrapped in a towel) to treat acute pain. Apply for 20 minutes every 24 hours during the first two days. Then, begin local heat (hot shower, hot bath or heating pad) andmassageto reduce muscle spasm. Some patients feel best alternating hot and cold treatments, or just staying with one method only. Do what feels the best to you and gives the most relief. You may use acetaminophen or ibuprofen to control pain, unless another pain medicine was prescribed.If you have chronic liver or kidney disease or ever had a stomach ulcer or GI bleeding, talk with your doctor before using these medicines. Follow-up care Follow up with your physician or this facility if your symptoms do not show signs of improvement. Physical therapy may be needed. If you had X-rays today, they didnt show any broken bones, breaks, or fractures. Sometimes fractures dont show up on the first X-ray. Bruises and sprains can sometimes hurt as much as a fracture. These injuries can take time to heal completely. If your symptoms dont improve or they get worse, talk with your doctor. You may need a repeat X-ray. When to seek medical care Get prompt medical attention if any of the following occur: Pain becomes worse or spreads into your arms Weakness or numbness in one or both arms You have been given the following additional information: Neck Sprain/Strain No lifting greater than 10 lbs until released. (Electronically signed by Gregg Lazaro Dr. 12/01/2016 10:47)
--- NOTE | 2016-12-01 12:48 | ED MED RECONCILIATION SUMMARY ---
Patient: LUCRECIA FLORES Medication Reconciliation Report [facility] VisitID: [id number] [address] [place] [address] 31y, F Registration Date/Time: 12/01/2016 Weight: 62.5 kg Height/Length: 62 in. BMI: 25.2 ALLERGIES: Hydrocodone The patient's Home Medications are listed below: CONTINUE TAKING THE FOLLOWING MEDICATIONS: Depo-Provera Intramuscular, every three months Ibuprofen Oral Melatonin Oral Vistaril Oral 25 mg, at bedtime The source(s) of the original Home Medication information: Not obtained. The following Medications were given to the patient in the Emergency Department: Toradol [IM] IM 60 mg, administered: 12/01/2016 10:45:00 AM The following Medications were prescribed to the patient: Duloxetine 60 mg: take 1 orally every day. Dispense thirty (30). No refills. -- Gregg Lazaro Dr.
--- NOTE | 2016-12-01 12:48 | ED MAR SUMMARY ---
..... Medication Administration Record [facility] [address] [place] [address] Patient: LUCRECIA FLORES Visit ID: [id number] 31y, F Weight: 62.5 kg Height/Length: 62 in BMI: 25.2 ALLERGIES: Hydrocodone Given 10:45 12/01/2016 Celia Castro R.N. Medication Administered: TORADOL [IM] (KETOROLAC TROMETHAMINE), Dose: 60 mg IM. Medication Ordered: Toradol IM 60 mg (NOW).
--- NOTE | 2016-12-01 12:48 | ED MED RECONCILIATION SUMMARY ---
Patient: LUCRECIA FLORES Medication Reconciliation Report [facility] VisitID: [id number] [address] [place] [address] 31y, F Registration Date/Time: 12/01/2016 Weight: 62.5 kg Height/Length: 62 in. BMI: 25.2 ALLERGIES: Hydrocodone The patient's Home Medications are listed below: CONTINUE TAKING THE FOLLOWING MEDICATIONS: Depo-Provera Intramuscular, every three months Ibuprofen Oral Melatonin Oral Vistaril Oral 25 mg, at bedtime The source(s) of the original Home Medication information: Not obtained. The following Medications were given to the patient in the Emergency Department: Toradol [IM] IM 60 mg, administered: 12/01/2016 10:45:00 AM The following Medications were prescribed to the patient: Duloxetine 60 mg: take 1 orally every day. Dispense thirty (30). No refills. -- Gregg Lazaro Dr.
== END 2016-12-01 12:45 | disposition home or self-care (01) ==
LOC: ED SRH 09:50
DX: S16.1XXA Strain of muscle, fascia and tendon at neck level, initial encounter (principal); X58.XXXA Exposure to other specified factors, initial encounter; Y92.9 Unspecified place or not applicable; Y99.9 Unspecified external cause status; Y93.9 Activity, unspecified; Z79.899 Other long term (current) drug therapy; Z88.5 Allergy status to narcotic agent

== ENCOUNTER 2016-12-03 11:38 | Emergency (ER) | payer SELFPAY ==
--- NOTE | 2016-12-03 16:28 | ED ORDER SUMMARY ---
..... Patient: LUCRECIA FLORES OrderSheet [facility] VisitID: [id number] [address] [place] [address] 31y, F Registration Date/Time: 12/03/2016 ORDER SHEET Weight: 62.5 kg (stated) Allergies: Hydrocodone GENERAL ORDERS: MEDICATION ORDERS: Lidocaine-Epinephrine Injection 1% with epi (place at bedside, with syringes & needles) (13:20 12/03/2016 Maurilio Peres) (13:27 LWhalen R.N.) Bupivacaine-Epinephrine Injection 0.5 % (soln) (place at bedside) (13:12/03/2016 Maurilio Peres) (13:27 LWhalen R.N.) IV FLUIDS: ORDER SHEET NOTES: [Electronically signed by Fani Michelle R.N. (17:12/03/2016)] [Electronically signed by Bennett Dumont Dr. (07:18 12/09/2016)] [Electronically locked/signed by Fani Michelle R.N. (17:12/03/2016)]
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
--- NOTE | 2016-12-03 16:28 | ED CLINICAL REPORT ---
Clinical Report - Physicians/Mid Levels [facility] [address] [place] [address] 12/03/2016 11:39 Patient: LUCRECIA FLORES Arrived- By private vehicle. Historian- patient. HISTORY OF PRESENT ILLNESS Chief Complaint: NECK PAIN. Onset was today and it is still present and worsening. It was abrupt in onset and has been constant but is not gone now. It is described as being severe and in the area of the left side of the cervical spine and right side of the cervical spine. The quality is noted to be sharp. No radiation. Modifying factors. (worsened by movement of the neck. better with rest.). No bladder dysfunction, bowel dysfunction, sensory loss or motor loss. Additional history - patient reports that she has been trying muscle relaxers and the ibuprofen however this is been upsetting her stomach. Patient reports that she is not been able to eat because of the discomfort and this no appetite. Patient reports no black or abnormal-colored stools. Patient denies an injury. Similar symptoms previously: Many times. Recent medical care: The patient was seen recently by a health care provider. REVIEW OF SYSTEMS No fever, chills, abdominal pain, nausea or vomiting. No diarrhea. PAST HISTORY See nurses notes. SOCIAL HISTORY Smoker- current status unknown. No alcohol use or drug use. ADDITIONAL NOTES The nursing notes have been reviewed. PHYSICAL EXAM Vital Signs: 12/03/2016 11:47 BP: 128/88. HR: 96. RR: 16. O2 saturation: 100%. Temp: 100 F. Pain level now: 9/10. Blood pressure normal. Oxygen saturation normal. Appearance: Alert. No acute distress. HEENT: Normal external inspection. Eyes: Pupils equal, round and reactive to light. ENT: Ears normal. Pharynx normal. Neck: Normal inspection. Neck nontender. Moderate muscle spasm of the right and left posterior neck. Decrease in ROM. Painless ROM. No vertebral tenderness. No lymphadenopathy or meningeal signs. CVS: Normal heart rate and rhythm. Heart sounds normal. Pulses normal. Respiratory: No respiratory distress. Breath sounds normal. Chest nontender. Abdomen: Normal inspection. Soft and nontender. Bowel sounds normal. No mass. Back: Normal inspection. No tenderness. Painless ROM. Skin: Skin warm and dry. Normal skin color. No rash. Normal skin turgor. Extremities: Extremities exhibit normal ROM. Extremities nontender. Neuro: Oriented X 3. Mood/affect normal. No motor deficit. No sensory deficit. Reflexes normal. PROGRESS AND PROCEDURES PROCEDURES (informed consent was obtained for paraspinal nerve block. The patient was prepped and set up in the normal fashion. With a one-to-one mixture of lidocaine and bupivacaine with epinephrine, 2 cc were injected at the paraspinal muscles neck to the C7 vertebrae. Patient tolerated procedure well. No Complications. Informed verbal consent was obtained prior to the onset of the procedure.). Course of Care: The patient is a pleasant 31-year-old female presenting for evaluation of bilateral neck pain. Patient has been evaluated for any signs of meningitis. Patient does not have any signs of meningitis at this time. Patient continues to be nontoxic and in no acute distress. Patient has had these symptoms in the past. Patient reports that normally they get better with the muscle waxers however has been unable to tolerate them well. Patient reports that they have been causing her to have an upset stomach. Patient states that because of the pain, she has not had much of an appetite. Patient reports no other concerns at this time. Patient reports no numbness, Tingling, weakness. No concerning for cord compromise at this time. Vital signs are otherwise unremarkable. informed verbal consent was obtained for paraspinal muscle block. Patient agreeable to treatment plan. Paraspinal muscle block was performed. Please see procedure note for further details. We'll reevaluate once the medications as had time to set in. first paraspinal nerve block was unsuccessful. Second paraspinal nerve block was attempted as the patient was agreeable to further treatment. Patient reports that she did receive several minutes of the be however the pain returned shortly after theinjection was given. Patient continues to be no acute distress however and is nontoxic. We'll reevaluate after the second block has been provided. Patient was reevaluated after the Second block was provided. Patient reports no significant change with the pain. Had long discussion with patient in regards to pain control and medications here in the emergency department that can be prescribed. Patient is agreeable to being given by mouthmedications. Patient is agreeable to the treatment plan. Do not feel patient has meningitis or paraspinal infection. Patient continues to be afebrile and nontoxic in appearance. I discussed with patientworkup, diagnosis, home care, follow-up, and return precautions. All questions answered. The patient expressed understanding of these instructions and was agreeable to them. Disposition: Discharged. Condition: good. CLINICAL IMPRESSION Acute neck pain. (acute bilateral posterior). 12/03/2016 11:47 BP: 128/88. HR: 96. RR: 16. O2 saturation: 100%. Temp: 100 F. Pain level now: 06/23. Acute headache. Blood pressure normal. Oxygen saturation normal. INSTRUCTIONS Warnings: GENERAL WARNINGS: Return or contact your physician immediately if your condition worsens or changes unexpectedly, if not improving as expected, or if other problems arise. SPECIFICALLY, return if you develop weakness, numbness, tingling, pain or incontinence. Your Current Medications: CONTINUE TAKING THE FOLLOWING MEDICATIONS: Baclofen External. Cyclobenzaprine HCl ER Oral. Depo-Provera Intramuscular : every three months. Ibuprofen Oral : prn. Melatonin Oral. Meloxicam Oral. Valium Oral. Vistaril Oral : 25 mg at bedtime. Prescription Medications: Zofran 4 mg: take 1 orally every 8 hours as needed for nausea and vomiting. Dispense ten (10). No refill. Substitution is permissible. Percocet 5 mg/325 mg: take 1 tablet orally every 6 hours as needed for pain. Dispense twelve (12). No refill. Substitution is permissible. Follow-up: Return to the emergency department as needed. Follow up with your doctor in three days. Reason for referral: recheck today's concerns. Summary of care provided to patient via paper. Screening today revealed the patient's blood pressure to be in the normal range. The patient should follow up with a primary care provider for blood pressure management. Understanding of the discharge instructions verbalized by patient. (Electronically signed by Bennett Dumont Dr. 12/09/2016 7:18)
--- NOTE | 2016-12-03 16:28 | ED ORDER SUMMARY ---
..... Patient: LUCRECIA FLORES OrderSheet [facility] VisitID: [id number] [address] [place] [address] 31y, F Registration Date/Time: 12/03/2016 ORDER SHEET Weight: 62.5 kg (stated) Allergies: Hydrocodone GENERAL ORDERS: MEDICATION ORDERS: Lidocaine-Epinephrine Injection 1% with epi (place at bedside, with syringes & needles) (13:20 12/03/2016 Maurilio Peres) (13:27 LWhalen R.N.) Bupivacaine-Epinephrine Injection 0.5 % (soln) (place at bedside) (13:12/03/2016 Maurilio Peres) (13:27 LWhalen R.N.) IV FLUIDS: ORDER SHEET NOTES: [Electronically signed by Fani Michelle R.N. (17:12/03/2016)] [Electronically signed by Bennett Dumont Dr. (07:18 12/09/2016)] [Electronically locked/signed by Fani Michelle R.N. (17:12/03/2016)]
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
--- NOTE | 2016-12-09 07:18 | ED MAR SUMMARY ---
..... Medication Administration Record [facility] [address] [place] [place] [address] Patient: LUCRECIA FLORES Visit ID: [id number] 31y, F Weight: 62.5 kg Height/Length: 62 in BMI: 25.2 ALLERGIES: Hydrocodone Given 13:12/03/2016 Fani Michelle, RRissaNRissa Medication Administered: LIDOCAINE-EPINEPHRINE [INJECTION] (LIDOCAINE-EPINEPHRINE), Dose: 2 % Injectable Injection. Medication Ordered: Lidocaine-Epinephrine Injection 1% with epi (place at bedside, with syringes & needles). Given 13:12/03/2016 Fani Michelle, R.N. Medication Administered: BUPIVACAINE-EPINEPHRINE [INJECTION] (BUPIVACAINE-EPINEPHRINE), Dose: 0.5 % Injectable Injection. Medication Ordered: Bupivacaine-Epinephrine Injection 0.5 % (soln) (place at bedside).
--- NOTE | 2016-12-09 07:18 | ED MAR SUMMARY ---
..... Medication Administration Record [facility] [address] [place] [address] Patient: LUCRECIA FLORES Visit ID: [id number] 31y, F Weight: 62.5 kg Height/Length: 62 in BMI: 25.2 ALLERGIES: Hydrocodone Given 13:12/03/2016 Fani Michelle, RRissaNRissa Medication Administered: LIDOCAINE-EPINEPHRINE [INJECTION] (LIDOCAINE-EPINEPHRINE), Dose: 2 % Injectable Injection. Medication Ordered: Lidocaine-Epinephrine Injection 1% with epi (place at bedside, with syringes & needles). Given 13:12/03/2016 Fani Michelle, R.N. Medication Administered: BUPIVACAINE-EPINEPHRINE [INJECTION] (BUPIVACAINE-EPINEPHRINE), Dose: 0.5 % Injectable Injection. Medication Ordered: Bupivacaine-Epinephrine Injection 0.5 % (soln) (place at bedside).
--- NOTE | 2016-12-09 07:18 | ED DISCHARGE INSTRUCTIONS ---
Patient: LUCRECIA FLORES General Instructions [facility] VisitID: [id number] [place] [address] 31y, F Registration Date/Time: 12/03/2016 Acute neck pain. (acute bilateral posterior). 12/03/2016 11:47 BP: 128/88. HR: 96. RR: 16. O2 saturation: 100%. Temp: 100 F. Pain level now: 06/23. Acute headache. Blood pressure normal. Oxygen saturation normal. INSTRUCTIONS Warnings: GENERAL WARNINGS: Return or contact your physician immediately if your condition worsens or changes unexpectedly, if not improving as expected, or if other problems arise. SPECIFICALLY, return if you develop weakness, numbness, tingling, pain or incontinence. Your Current Medications: CONTINUE TAKING THE FOLLOWING MEDICATIONS: Baclofen External. Cyclobenzaprine HCl ER Oral. Depo-Provera Intramuscular : every three months. Ibuprofen Oral : prn. Melatonin Oral. Meloxicam Oral. Valium Oral. Vistaril Oral : 25 mg at bedtime. Prescription Medications: Zofran 4 mg: take 1 orally every 8 hours as needed for nausea and vomiting. Dispense ten (10). No refill. Substitution is permissible. Percocet 5 mg/325 mg: take 1 tablet orally every 6 hours as needed for pain. Dispense twelve (12). No refill. Substitution is permissible. Follow-up: Return to the emergency department as needed. Follow up with your doctor in three days. Reason for referral: recheck today's concerns. Summary of care provided to patient via paper. Screening today revealed the patient's blood pressure to be in the normal range. The patient should follow up with a primary care provider for blood pressure management. Understanding of the discharge instructions verbalized by patient. ADDITIONAL INFORMATION Neck Pain [No Trauma] There are several possible causes of neck pain without injury: You can get a minor ligament sprain or muscle strain from a sudden minor neck movement. Sleeping with your neck in an awkward position can also cause this. Some persons respond to emotional stress by tensing the muscles of their neck, shoulders and upper back. Chronic spasm in these muscles can cause neck pain and sometimes headaches. Gradualwear and tearof the joints in the spine can cause degenerative arthritis.This can be a source of occasional or chronic neck pain. With aging or repeated small injuries to the neck, the spinal disks (the cushions between each spinal bone) may bulge and put pressure on a nearby spinal nerve. This causes tingling, pain or numbness spreading from the neck to the shoulder, arm or hand on one side. Acute neck pain usually gets better in one to two weeks. Neck pain related to disk disease, arthritis in the spinal joints or spinal stenosis (narrowing of the spinal canal) can become chronic and last for months or years. Unless you had a forceful physical injury (for example, a car accident or fall), X-rays are usually not ordered for the initial evaluation of neck pain. If pain continues and does not respond to medical treatment, x-rays and other tests may be performed at a later time. Home Care: Rest and relax the muscles. Use a comfortable pillow that supports the head and keeps the spine in a neutral position. The position of the head should not be tilted forward or backward. A rolled up towel may help for a custom fit. Some persons find relief with heat (hot shower, hot bath or heating pad) and massage, while others prefer cold packs (crushed or cubed ice in a plastic bag, wrapped in a towel) . Try both and use the method that feels best for 20 minutes several times a day. You may use acetaminophen (Tylenol) or ibuprofen (Motrin, Advil) to control pain, unless another medicine was prescribed. [ NOTE : If you have chronic liver or kidney disease or ever had a stomach ulcer or GI bleeding, talk with your doctor before using these medicines.] Follow Up with your physician or this facility if your symptoms do not show signs of improvement after one week. Physical therapy or further tests may be needed. [NOTE: A radiologist will review any X-rays or CT scans that were taken. We will notify you of any new findings that may affect your care.] Get Prompt Medical Attention if any of the following occur: Pain becomes worse or spreads into one or both arms Weakness or numbness in one or both arms Increasing headache Neck swelling, difficulty or painful swallowing Fever of 100.4F (38C) or higher, or as directed by your healthcare provider Headache [Unspecified] The cause of your headache today is not clear, but it does not appear to be the sign of any serious illness. Under stress, some people tense the muscles of their shoulder, neck and scalp without knowing it. If this condition lasts long enough, a TENSION HEADACHE can occur. A MIGRAINE HEADACHE is caused by changes in blood flow to the brain. A migraine attack may be triggered by emotional stress, hormone changes during the menstrual cycle, oral contraceptives, alcohol use, certain foods containing tyramine, eye strain, weather changes, missing meals, lack of sleep or oversleeping. Other causes of headache include a viral illness with high fever, head injury with concussion, sinus, ear or throat infection, dental pain and TMJ (jaw joint) pain. More serious but less common causes of headache include stroke, brain hemorrhage, brain tumor, meningitis and encephalitis. Home Care: If you were given pain medicine for this headache, do not drive yourself home. Arrange for a ride, instead. When you get home, try to sleep. You should feel much better when you wake up. Apply heat to the back of your neck to relieve neck muscle spasm. Migraine headaches may respond best to an ice pack on the forehead or at the base of the skull. If you are having nausea or vomiting, follow a light diet until your headache is relieved. If you have a migraine type headache, use sunglasses when in the daylight or around bright indoor lighting until symptoms improve. Bright glaring light can worsen this kind of headache. Follow Up with your doctor if the headache is not better within the next 24 hours. If you have frequent headaches you should discuss a treatment plan with your primary care doctor. By being aware of the earliest signs of headache, and starting treatment right away, you may be able to stop the pain yourself. Get Prompt Medical Attention if any of the following occur: Worsening of your head pain or no improvement within 24 hours Repeated vomiting (unable to keep liquids down) Fever of 100.4F (38C) or higher, or as directed by your healthcare provider Stiff neck Extreme drowsiness, confusion or fainting Dizziness, vertigo (dizziness with spinning sensation) Weakness of an arm or leg or one side of the face Difficulty with speech or vision Ondansetron Hydrochloride Oral tablet What is this medicine? ONDANSETRON (on MARIANA se tobias) is used to treat nausea and vomiting caused by chemotherapy. It is also used to prevent or treat nausea and vomiting after surgery. How should I use this medicine? Take this medicine by mouth with a glass of water. Follow the directions on your prescription label. Take your doses at regular intervals. Do not take your medicine more often than directed. Talk to your brokerage clerk regarding the use of this medicine in children. Special care may be needed. What side effects may I notice from receiving this medicine? Side effects that you should report to your doctor or health intensive care medicine specialist as soon as possible: allergic reactions like skin rash, itching or hives, swelling of the face, lips or tongue breathing problems dizziness fast or irregular heartbeat feeling faint or lightheaded, falls fever and chills swelling of the hands or feet tightness in the chest Side effects that usually do not require medical attention (report to your doctor or health intensive care medicine specialist if they continue or are bothersome): constipation or diarrhea headache What may interact with this medicine? Do not take this medicine with any of the following medications: -apomorphine -cisapride -dofetilide -dronedarone -pimozide -thioridazine -ziprasidone This medicine may also interact with the following medications: -carbamazepine -phenytoin -rifampicin -tramadol -other medicines that prolong the QT interval (cause an abnormal heart rhythm) What if I miss a dose? If you miss a dose, take it as soon as you can. If it is almost time for your next dose, take only that dose. Do not take double or extra doses. Where should I keep my medicine? Keep out of the reach of children. Store between 2 and 30 degrees C (36 and 86 degrees F). Throw away any unused medicine after the expiration date. What should I tell my health care provider before I take this medicine? They need to know if you have any of these conditions: heart disease history of irregular heartbeat liver disease low levels of magnesium or potassium in the blood an unusual or allergic reaction to ondansetron, granisetron, other medicines, foods, dyes, or preservatives or trying to get breast-feeding What should I watch for while using this medicine? Check with your doctor or health intensive care medicine specialist right away if you have any sign of an allergic reaction. Oxycodone Hydrochloride, Acetaminophen Oral tablet What is this medicine? ACETAMINOPHEN; OXYCODONE (a set a FAISAL tip fen; ox i KOE done) is a pain reliever. It is used to treat mild to moderate pain. How should I use this medicine? Take this medicine by mouth with a full glass of water. Follow the directions on the prescription label. Take your medicine at regular intervals. Do not take your medicine more often than directed. Talk to your brokerage clerk regarding the use of this medicine in children. Special care may be needed. Patients over 65 years old may have a stronger reaction and need a smaller dose. What side effects may I notice from receiving this medicine? Side effects that you should report to your doctor or health intensive care medicine specialist as soon as possible: allergic reactions like skin rash, itching or hives, swelling of the face, lips, or tongue breathing difficulties, wheezing confusion light headedness or fainting spells severe stomach pain yellowing of the skin or the whites of the eyes Side effects that usually do not require medical attention (report to your doctor or health intensive care medicine specialist if they continue or are bothersome): dizziness drowsiness nausea vomiting What may interact with this medicine? alcohol antihistamines barbiturates like amobarbital, butalbital, butabarbital, methohexital, pentobarbital, phenobarbital, thiopental, and secobarbital benztropine drugs for bladder problems like solifenacin, trospium, oxybutynin, tolterodine, hyoscyamine, and methscopolamine drugs for breathing problems like ipratropium and tiotropium drugs for certain stomach or intestine problems like propantheline, homatropine methylbromide, glycopyrrolate, atropine, belladonna, and dicyclomine general anesthetics like etomidate, ketamine, nitrous oxide, propofol, desflurane, enflurane, halothane, isoflurane, and sevoflurane medicines for depression, anxiety, or psychotic disturbances medicines for sleep muscle relaxants naltrexone narcotic medicines (opiates) for pain phenothiazines like perphenazine, thioridazine, chlorpromazine, mesoridazine, fluphenazine, prochlorperazine, promazine, and trifluoperazine scopolamine tramadol trihexyphenidyl What if I miss a dose? If you miss a dose, take it as soon as you can. If it is almost time for your next dose, take only that dose. Do not take double or extra doses. Where should I keep my medicine? Keep out of the reach of children. This medicine can be abused. Keep your medicine in a safe place to protect it from theft. Do not share this medicine with anyone. Selling or giving away this medicine is dangerous and against the law. Store at room temperature between 20 and 25 degrees C (68 and 77 degrees F). Keep container tightly closed. Protect from light. This medicine may cause accidental overdose and if it is taken by other adults, children, or pets. Flush any unused medicine down the toilet to reduce the chance of harm. Do not use the medicine after the expiration date. What should I tell my health care provider before I take this medicine? They need to know if you have any of these conditions: brain tumor Crohn's disease, inflammatory bowel disease, or ulcerative colitis drink more than 3 alcohol containing drinks per day drug abuse or addiction head injury heart or circulation problems kidney disease or problems going to the bathroom liver disease lung disease, asthma, or breathing problems an unusual or allergic reaction to acetaminophen, oxycodone, other opioid analgesics, other medicines, foods, dyes, or preservatives or trying to get breast-feeding What should I watch for while using this medicine? Tell your doctor or health intensive care medicine specialist if your pain does not go away, if it gets worse, or if you have new or a different type of pain. You may develop tolerance to the medicine. Tolerance means that you will need a higher dose of the medication for pain relief. Tolerance is normal and is expected if you take this medicine for a long time. Do not suddenly stop taking your medicine because you may develop a severe reaction. Your body becomes used to the medicine. This does NOT mean you are addicted. Addiction is a behavior related to getting and using a drug for a non-medical reason. If you have pain, you have a medical reason to take pain medicine. Your doctor will tell you how much medicine to take. If your doctor wants you to stop the medicine, the dose will be slowly lowered over time to avoid any side effects. You may get drowsy or dizzy. Do not drive, use machinery, or do anything that needs mental alertness until you know how this medicine affects you. Do not stand or sit up quickly, especially if you are an older patient. This reduces the risk of dizzy or fainting spells. Alcohol may interfere with the effect of this medicine. Avoid alcoholic drinks. There are different types of narcotic medicines (opiates) for pain. If you take more than one type at the same time, you may have more side effects. Give your health care provider a list of all medicines you use. Your doctor will tell you how much medicine to take. Do not take more medicine than directed. Call emergency for help if you have problems breathing. The medicine will cause constipation. Try to have a bowel movement at least every 2 to 3 days. If you do not have a bowel movement for 3 days, call your doctor or health intensive care medicine specialist. Do not take Tylenol (acetaminophen) or medicines that have acetaminophen with this medicine. Too much acetaminophen can be very dangerous. Many nonprescription medicines contain acetaminophen. Always read the labels carefully to avoid taking more acetaminophen. You have been given the following additional information: Neck Pain, No Trauma Headache, Unspecified Ondansetron Hydrochloride Oral tablet Oxycodone Hydrochloride, Acetaminophen Oral tablet (Electronically signed by Bennett Dumont Dr. 12/09/2016 7:18)
--- NOTE | 2016-12-09 07:18 | ED MED RECONCILIATION SUMMARY ---
Patient: LUCRECIA FLORES Medication Reconciliation Report [facility] VisitID: [id number] [address] [place] [address] 31y, F Registration Date/Time: 12/03/2016 Weight: 62.5 kg Height/Length: 62 in. BMI: 25.2 ALLERGIES: Hydrocodone The patient's Home Medications are listed below: CONTINUE TAKING THE FOLLOWING MEDICATIONS: Baclofen External Cyclobenzaprine HCl ER Oral Depo-Provera Intramuscular, every three months Ibuprofen Oral Melatonin Oral Meloxicam Oral Valium Oral Vistaril Oral 25 mg, at bedtime The source(s) of the original Home Medication information: patient The following Medications were given to the patient in the Emergency Department: Lidocaine-Epinephrine [Injection] Injection 2 %, administered: 12/03/2016 1:27:00 PM Bupivacaine-Epinephrine [Injection] Injection 0.5 %, administered: 12/03/2016 1:27:00 PM The following Medications were prescribed to the patient: Zofran 4 mg: take 1 orally every 8 hours as needed for nausea and vomiting. Dispense ten (10). No refill. Substitution is permissible. -- Bennett Dumont Dr. Percocet 5 mg/325 mg: take 1 tablet orally every 6 hours as needed for pain. Dispense twelve (12). No refill. Substitution is permissible. -- Bennett Dumont Dr.
--- NOTE | 2016-12-09 07:18 | ED MED RECONCILIATION SUMMARY ---
Patient: LUCRECIA FLORES Medication Reconciliation Report [facility] VisitID: [id number] [address] [place] [address] 31y, F Registration Date/Time: 12/03/2016 Weight: 62.5 kg Height/Length: 62 in. BMI: 25.2 ALLERGIES: Hydrocodone The patient's Home Medications are listed below: CONTINUE TAKING THE FOLLOWING MEDICATIONS: Baclofen External Cyclobenzaprine HCl ER Oral Depo-Provera Intramuscular, every three months Ibuprofen Oral Melatonin Oral Meloxicam Oral Valium Oral Vistaril Oral 25 mg, at bedtime The source(s) of the original Home Medication information: patient The following Medications were given to the patient in the Emergency Department: Lidocaine-Epinephrine [Injection] Injection 2 %, administered: 12/03/2016 1:27:00 PM Bupivacaine-Epinephrine [Injection] Injection 0.5 %, administered: 12/03/2016 1:27:00 PM The following Medications were prescribed to the patient: Zofran 4 mg: take 1 orally every 8 hours as needed for nausea and vomiting. Dispense ten (10). No refill. Substitution is permissible. -- Bennett Dumont Dr. Percocet 5 mg/325 mg: take 1 tablet orally every 6 hours as needed for pain. Dispense twelve (12). No refill. Substitution is permissible. -- Bennett Dumont Dr.
== END 2016-12-03 16:45 | disposition home or self-care (01) ==
LOC: ED SRH 11:38
DX: M54.2 Cervicalgia (principal); R51 Headache; I10 Essential (primary) hypertension; Z79.899 Other long term (current) drug therapy; Z88.5 Allergy status to narcotic agent

== ENCOUNTER 2016-12-06 18:55 | Emergency (ER) | payer SELFPAY ==
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
--- NOTE | 2016-12-06 20:56 | ED NURSING NOTES ---
Clinical Report - Nurses [facility] [address] [place] [address] 12/06/2016 18:56 Patient: LUCRECIA FLORES TRIAGE Triage time 1915. Acuity: LEVEL 4. Chief Complaint: (Pt taking percocet for neck pain, states she can't tolerate meds, even with anti-nausea meds. asking to have rx changed). 19:15. --19:27 Lisset Guerrero R.N. 19:15 12/06/16. BP: 136/98. HR: 88. RR: 20. O2 saturation: 99%. Temp: 98.3 F. Pain level now: 05/23. --19:27 Lisset Guerrero R.N. Weight: 59.4 kg stated. Height/Length: 62 inches Per Patient. BMI: 24. --19:23 Lisset Guerrero R.N. Medications Depo-Provera Intramuscular, every three months. Ibuprofen Oral, as needed. Melatonin Oral. Vistaril Oral 25 mg, at bedtime. --19:24 Lisset Guerrero R.N. Percocet 1 every 6 hours - last one taken 0630 . --19:24 Lisset Guerrero R.N. zofran 4mg prn --1500 last one. --19:26 Lisset Guerrero R.N. Allergies Hydrocodone. Definite Moderate(nausea) --19:24 Lisset Guerrero R.N. History Arrived by private vehicle. Historian: patient. Unaccompanied. Primary physician (Joanna). PAST MEDICAL HX: Last normal menstrual period- 2 weeks. SOCIAL HX: Light tobacco smoker (cigarette)- less than 1/2 a pack per day. Occasional alcohol use. No drug use. --19:27 Lisset Guerrero R.N. PROBLEMS: Head Injury. Hypertension. Hernia. Bronchiolitis. Cervical Strain. Back Pain. Gastroenteritis. Lumbar Strain. UTI - Urinary Tract Infection. Migraine Headache. Headache. Contact Dermatitis. --19:26 Lisset Guerrero R.N. ADDITIONAL SURGERIES: Hernia Repair. Umbilical Hernia Repair. Urologic Surgery at 2 years. --19:26 Lisset Guerrero R.N. Interventions ID band on patient. To treatment room. --19:27 Lisset Guerrero R.N. PHYSICAL ASSESSMENT 20:20. Ambulatory to room. GENERAL / NEURO / PSYCH: Alert. Oriented X 4. Appears in no acute distress. RESPIRATORY: Respirations not labored. SKIN: Skin is warm and dry. --20:21 Lisset Guerrero R.N. NURSING PROGRESS NOTES 20:20 12/06/16. Head of bed elevated. Reassurance given. Patient identifiers checked. Call light placed in reach. Side rails up. Bed placed in lowest position. Patient ready for evaluation- chart flagged. --20:20 Lisset Guerrero R.N. 20:21 12/06/16. Care transferred and report given (JACKIE Castro). --20:21 Lisset Guerrero R.N. 20:22 12/06/16. The initial plan of care for this patient includes an assessment with efforts to address the presence of pain. This plan of care was discussed with the patient. Patient gowned. Reassurance given. Patient identifiers checked. Call light placed in reach. Side rails up x 1. Bed placed in lowest position. Brakes of bed on. Patient ready for evaluation. --: Yvette Cole R.N. DISPOSITION / DISCHARGE 21:12/06/16. Condition at departure: unchanged and stable. The goals identified in the patient's plan of care were met. No learning barriers present. Reviewed medication(s) side effects, precautions, dosing and course information. Prescription(s) given to the patient. Reviewed referral to a primary care physician for followup. Summary of care provided to patient via paper. Patient verbalized understanding. Written instructions provided in Japanese. The patient was discharged home and unaccompanied at time of discharge. She left the Emergency Department ambulatory and via private vehicle. Patient driving. --21:14 Yvette Cole R.N. 19:15 12/06/16. BP: 136/98. HR: 88. RR: 20. O2 saturation: 99%. Temp: 98.3 F. Pain level now: 05/23. --21:14 Yvette Cole R.N. Departure time: 21:14 Dec 06 2016. --21:14 Yvette Cole R.N. Locked/Released at 12/06/2016 21:15 by Yvette Cole R.N.
--- NOTE | 2016-12-06 20:56 | ED NURSING NOTES ---
Clinical Report - Nurses [facility] [address] [place] [address] 12/06/2016 18:56 Patient: LUCRECIA FLORES TRIAGE Triage time 1915. Acuity: LEVEL 4. Chief Complaint: (Pt taking percocet for neck pain, states she can't tolerate meds, even with anti-nausea meds. asking to have rx changed). 19:15. --19:27 Lisset Guerrero R.N. 19:15 12/06/16. BP: 136/98. HR: 88. RR: 20. O2 saturation: 99%. Temp: 98.3 F. Pain level now: 05/23. --19:27 Lisset Guerrero R.N. Weight: 59.4 kg stated. Height/Length: 62 inches Per Patient. BMI: 24. --19:23 Lisset Guerrero R.N. Medications Depo-Provera Intramuscular, every three months. Ibuprofen Oral, as needed. Melatonin Oral. Vistaril Oral 25 mg, at bedtime. --19:24 Lisset Guerrero R.N. Percocet 1 every 6 hours - last one taken 0630 . --19:24 Lisset Guerrero R.N. zofran 4mg prn --1500 last one. --19:26 Lisset Guerrero R.N. Allergies Hydrocodone. Definite Moderate(nausea) --19:24 Lisset Guerrero R.N. History Arrived by private vehicle. Historian: patient. Unaccompanied. Primary physician (Joanna). PAST MEDICAL HX: Last normal menstrual period- 2 weeks. SOCIAL HX: Light tobacco smoker (cigarette)- less than 1/2 a pack per day. Occasional alcohol use. No drug use. --19:27 Lisset Guerrero R.N. PROBLEMS: Head Injury. Hypertension. Hernia. Bronchiolitis. Cervical Strain. Back Pain. Gastroenteritis. Lumbar Strain. UTI - Urinary Tract Infection. Migraine Headache. Headache. Contact Dermatitis. --19:26 Lisset Guerrero R.N. ADDITIONAL SURGERIES: Hernia Repair. Umbilical Hernia Repair. Urologic Surgery at 2 years. --19:26 Lisset Guerrero R.N. Interventions ID band on patient. To treatment room. --19:27 Lisset Guerrero R.N. PHYSICAL ASSESSMENT 20:20. Ambulatory to room. GENERAL / NEURO / PSYCH: Alert. Oriented X 4. Appears in no acute distress. RESPIRATORY: Respirations not labored. SKIN: Skin is warm and dry. --20:21 Lisset Guerrero R.N. NURSING PROGRESS NOTES 20:20 12/06/16. Head of bed elevated. Reassurance given. Patient identifiers checked. Call light placed in reach. Side rails up. Bed placed in lowest position. Patient ready for evaluation- chart flagged. --20:20 Lisset Guerrero R.N. 20:21 12/06/16. Care transferred and report given (JACKIE Castro). --20:21 Lisset Guerrero R.N. 20:22 12/06/16. The initial plan of care for this patient includes an assessment with efforts to address the presence of pain. This plan of care was discussed with the patient. Patient gowned. Reassurance given. Patient identifiers checked. Call light placed in reach. Side rails up x 1. Bed placed in lowest position. Brakes of bed on. Patient ready for evaluation. --: Yvette Cole R.N. DISPOSITION / DISCHARGE 21:12/06/16. Condition at departure: unchanged and stable. The goals identified in the patient's plan of care were met. No learning barriers present. Reviewed medication(s) side effects, precautions, dosing and course information. Prescription(s) given to the patient. Reviewed referral to a primary care physician for followup. Summary of care provided to patient via paper. Patient verbalized understanding. Written instructions provided in Cook Islander. The patient was discharged home and unaccompanied at time of discharge. She left the Emergency Department ambulatory and via private vehicle. Patient driving. --21:14 Yvette Cole R.N. 19:15 12/06/16. BP: 136/98. HR: 88. RR: 20. O2 saturation: 99%. Temp: 98.3 F. Pain level now: 05/23. --21:14 Yvette Cole R.N. Departure time: 21:14 Dec 06 2016. --21:14 Yvette Cole R.N. Locked/Released at 12/06/2016 21:15 by Yvette Cole R.N.
--- NOTE | 2016-12-06 21:21 | ED MAR SUMMARY ---
..... Medication Administration Record [facility] [address], [place] [id number] Patient: LUCRECIA FLORES Visit ID: [id number] 31y, F Weight: 59.4 kg Height/Length: 62 in BMI: 24 ALLERGIES: Hydrocodone
--- NOTE | 2016-12-06 21:21 | ED DISCHARGE INSTRUCTIONS ---
Patient: LUCRECIA FLORES General Instructions [facility] VisitID: [id number] [place] [address] 31y, F Registration Date/Time: 12/06/2016 Chronic neck pain. No neuro deficit. Chronic substance abuse- hydrocodone and oxycodone. Mild nausea with vomiting. INSTRUCTIONS Warnings: GENERAL WARNINGS: Return or contact your physician immediately if your condition worsens or changes unexpectedly, if not improving as expected, or if other problems arise. SPECIFICALLY, return if you develop the inability to keep fluids down. Prescription Medications: Naprosyn 500 mg tablets: take 1 orally every 12 hours as needed for pain. Dispense twenty (20). No refills. Substitution is permissible. Follow-up: Follow up with your doctor in about one week even if well. Call for an appointment. Summary of care provided to patient. Understanding of the discharge instructions verbalized by patient. ADDITIONAL INFORMATION Neck Pain [No Trauma] There are several possible causes of neck pain without injury: You can get a minor ligament sprain or muscle strain from a sudden minor neck movement. Sleeping with your neck in an awkward position can also cause this. Some persons respond to emotional stress by tensing the muscles of their neck, shoulders and upper back. Chronic spasm in these muscles can cause neck pain and sometimes headaches. Gradualwear and tearof the joints in the spine can cause degenerative arthritis.This can be a source of occasional or chronic neck pain. With aging or repeated small injuries to the neck, the spinal disks (the cushions between each spinal bone) may bulge and put pressure on a nearby spinal nerve. This causes tingling, pain or numbness spreading from the neck to the shoulder, arm or hand on one side. Acute neck pain usually gets better in one to two weeks. Neck pain related to disk disease, arthritis in the spinal joints or spinal stenosis (narrowing of the spinal canal) can become chronic and last for months or years. Unless you had a forceful physical injury (for example, a car accident or fall), X-rays are usually not ordered for the initial evaluation of neck pain. If pain continues and does not respond to medical treatment, x-rays and other tests may be performed at a later time. Home Care: Rest and relax the muscles. Use a comfortable pillow that supports the head and keeps the spine in a neutral position. The position of the head should not be tilted forward or backward. A rolled up towel may help for a custom fit. Some persons find relief with heat (hot shower, hot bath or heating pad) and massage, while others prefer cold packs (crushed or cubed ice in a plastic bag, wrapped in a towel) . Try both and use the method that feels best for 20 minutes several times a day. You may use acetaminophen (Tylenol) or ibuprofen (Motrin, Advil) to control pain, unless another medicine was prescribed. [ NOTE : If you have chronic liver or kidney disease or ever had a stomach ulcer or GI bleeding, talk with your doctor before using these medicines.] Follow Up with your physician or this facility if your symptoms do not show signs of improvement after one week. Physical therapy or further tests may be needed. [NOTE: A radiologist will review any X-rays or CT scans that were taken. We will notify you of any new findings that may affect your care.] Get Prompt Medical Attention if any of the following occur: Pain becomes worse or spreads into one or both arms Weakness or numbness in one or both arms Increasing headache Neck swelling, difficulty or painful swallowing Fever of 100.4F (38C) or higher, or as directed by your healthcare provider Drug Abuse Use and abuse of such drugs as marijuana, amphetamines (speed, crank), cocaine, heroin or prescription pain medicines (Vicodin, codeine), sedatives and sleeping pills (Valium, Klonopin), PCP, mescaline and LSD may lead to addiction or dependence. Once this occurs, you are at greater risk for any of the following: Craving for the drug and unable to stop using the drug even though you think you want to stop (psychological dependence) Drug withdrawal symptoms if you stop taking the drug (physical dependence) Loss of your job or your family Arrest, conviction and retirement sentence for possession of an illegal substance or for driving under the influence of such a substance Accidental injuries to yourself or others while you are under the influence of the drug (in a car or at home). HIV infection (much greater risk if you use IV drugs) Other sexually transmitted diseases (herpes, chlamydia, gonorrhea and others) Severe and fatal infection of the heart valves (if you use IV drugs) Stroke, heart attack, hepatitis B or C, kidney failure from overdose Home Care: Admit you have a drug problem. Ask for help from your family and close friends. Seek professional help. This could be in the form of individual psychotherapy or counseling or an outpatient, inpatient, or residential drug treatment program. Join a self-help group for drug abuse. Avoid friends who abuse drugs themselves or tempt you to continue abusing drugs. Eat a balanced diet and begin a regular exercise program. Follow Up with your doctor or as advised by our staff. Contact one of the resources below for help. National [place] on Alcoholism and Drug Dependence www.ncadd.org 696-413-FUGR Narcotics Anonymous www.na.org 904-584-2969 National Alcohol and Substance Abuse Information Center (for referral to treatment programs) www.[employer] 616-680-3066 Get Prompt Medical Attention if any of the following occur: Agitation, anxiety, unable to sleep Unintended weight loss (more than 10 to 15 pounds over 3 months) Seizure Chest pain Fever of 100.4F (38C) or higher, or as directed by your healthcare provider Excess drowsiness or inability to be awakened Shortness of breath Slow breathing under 8 breaths per minute Cough with colored sputum Redness, swelling or tenderness at an injection site Opiate Abuse Use and abuse of heroin or prescription pain medicines (Vicodin, codeine) may lead to physical ADDICTION or psychological DEPENDENCE. Once this occurs, you are at greater risk for any of the following: - Craving for the drug and unable to stop using the drug even though you think you want to stop (psychological dependence) - Drug withdrawal symptoms if you stop taking the drug (physical addiction) - Loss of your job or your family - Arrest, conviction and retirement sentence for possession of an illegal substance or for driving under the influence of such a substance - Accidental injuries to yourself or others while you are under the influence of the drug (in a car or at home). - HIV infection (much greater risk if you use IV drugs) - Other sexually transmitted diseases (Herpes, chlamydia, gonorrhea and others) - Severe and fatal infection of the heart valves (if you use IV drugs) - Stroke, heart attack, hepatitis B or C, kidney failure - from overdose Home Care: 1) Admit you have a drug problem. Ask for help from your family and close friends. 2) Seek professional help. This could be individual psychotherapy, counseling, or a drug treatment program (outpatient or residential). 3) Join a self-help group for drug abuse. 4) Avoid friends who abuse drugs themselves or tempt you to continue your habit 5) Eat a balanced diet and begin a regular exercise program. Follow Up with your doctor or as advised by our staff. Contact one of the resources below for help. National [place] on Alcoholism and Drug Dependence, www.ncadd.org 533-768-OBXP Narcotics Anonymous (check your phone book for a local listing or call 385-518-6338) www.na.org National Alcohol and Substance Abuse Information Center (for referral to treatment programs) Www.[employer] 831-312-6911 Get Prompt Medical Attention if any of the following occur: -- Symptoms of withdrawal (agitation, anxiety, trembling, sweats, diarrhea, unable to sleep) -- Chest pain -- Unexplained fever over 100.4 F (38.0 C) -- Excessive drowsiness or inability to be awakened -- Slow breathing under 8 breaths per minute -- Shortness of breath or cough with colored sputum -- Redness, swelling or tenderness at an injection site Pain Management: Chronic You have a painful condition that has required frequent use of narcotic-type pain medicine. We would like to see that you receive the best possible care for your problem. To achieve this, you must have apersonal physician who can supervise a treatment plan for you. You may locate a personal physician on your own or contact one of the doctors whose name has been given to you. If your physician determines that you need to visit the ER for pain control, that doctor should provide you with a PAIN CONTRACT. This is a letter from your doctor which describes what pain medicine you may receive, how much and how often. You sign it agreeing to the terms of the treatment plan. Bring this with you each time you come to this facility. It will help the Emergency Physician provide the proper treatment for you with minimal delay. Please Note: IN THE FUTURE YOU WILL NOT BE ABLE TO RECEIVE Narcotic Pain Medicine From This Facility Without A Pain Contract Or Telephone Approval From Your Personal Physician. Naproxen Sodium Oral tablet What is this medicine? NAPROXEN (na PROX en) is a non-steroidal anti-inflammatory drug (NSAID). It is used to reduce swelling and to treat pain. This medicine may be used for dental pain, headache, or painful monthly periods. It is also used for painful joint and muscular problems such as arthritis, tendinitis, bursitis, and gout. How should I use this medicine? Take this medicine by mouth with a glass of water. Follow the directions on the prescription label. Take it with food if your stomach gets upset. Try to not lie down for at least 10 minutes after you take it. Take your medicine at regular intervals. Do not take your medicine more often than directed. Long-term, continuous use may increase the risk of heart attack or stroke. A special MedGuide will be given to you by the pharmacist with each prescription and refill. Be sure to read this information carefully each time. Talk to your amusement centre manager regarding the use of this medicine in children. Special care may be needed. What side effects may I notice from receiving this medicine? Side effects that you should report to your doctor or health manager home healthcare as soon as possible: black or bloody stools, blood in the urine or vomit blurred vision chest pain difficulty breathing or wheezing nausea or vomiting severe stomach pain skin rash, skin redness, blistering or peeling skin, hives, or itching slurred speech or weakness on one side of the body swelling of eyelids, throat, lips unexplained weight gain or swelling unusually weak or tired yellowing of eyes or skin Side effects that usually do not require medical attention (report to your doctor or health manager home healthcare if they continue or are bothersome): constipation headache heartburn What may interact with this medicine? alcohol aspirin cidofovir diuretics lithium methotrexate other drugs for inflammation like ketorolac or prednisone pemetrexed probenecid warfarin What if I miss a dose? If you miss a dose, take it as soon as you can. If it is almost time for your next dose, take only that dose. Do not take double or extra doses. Where should I keep my medicine? Keep out of the reach of children. Store at room temperature between 15 and 30 degrees C (59 and 86 degrees F). Keep container tightly closed. Throw away any unused medicine after the expiration date. What should I tell my health care provider before I take this medicine? They need to know if you have any of these conditions: asthma cigarette smoker drink more than 3 alcohol containing drinks a day heart disease or circulation problems such as heart failure or leg edema (fluid retention) high blood pressure kidney disease liver disease stomach bleeding or ulcers an unusual or allergic reaction to naproxen, aspirin, other NSAIDs, other medicines, foods, dyes, or preservatives or trying to get breast-feeding What should I watch for while using this medicine? Tell your doctor or health manager home healthcare if your pain does not get better. Talk to your doctor before taking another medicine for pain. Do not treat yourself. This medicine does not prevent heart attack or stroke. In fact, this medicine may increase the chance of a heart attack or stroke. The chance may increase with longer use of this medicine and in people who have heart disease. If you take aspirin to prevent heart attack or stroke, talk with your doctor or health manager home healthcare. Do not take other medicines that contain aspirin, ibuprofen, or naproxen with this medicine. Side effects such as stomach upset, nausea, or ulcers may be more likely to occur. Many medicines available without a prescription should not be taken with this medicine. This medicine can cause ulcers and bleeding in the stomach and intestines at any time during treatment. Do not smoke cigarettes or drink alcohol. These increase irritation to your stomach and can make it more susceptible to damage from this medicine. Ulcers and bleeding can happen without warning symptoms and can cause . You may get drowsy or dizzy. Do not drive, use machinery, or do anything that needs mental alertness until you know how this medicine affects you. Do not stand or sit up quickly, especially if you are an older patient. This reduces the risk of dizzy or fainting spells. This medicine can cause you to bleed more easily. Try to avoid damage to your teeth and gums when you brush or floss your teeth. You have been given the following additional information: Neck Pain, No Trauma Drug Abuse Opiate Abuse Drug Seeking Behavior, Pain Contract Required Naproxen Sodium Oral tablet (Electronically signed by Sumaya Parks A.R.N.P. 12/06/2016 21:20)
--- NOTE | 2016-12-06 21:21 | ED DISCHARGE INSTRUCTIONS ---
Patient: LUCRECIA FLORES General Instructions [facility] VisitID: [id number] [place] [address] 31y, F Registration Date/Time: 12/06/2016 Chronic neck pain. No neuro deficit. Chronic substance abuse- hydrocodone and oxycodone. Mild nausea with vomiting. INSTRUCTIONS Warnings: GENERAL WARNINGS: Return or contact your physician immediately if your condition worsens or changes unexpectedly, if not improving as expected, or if other problems arise. SPECIFICALLY, return if you develop the inability to keep fluids down. Prescription Medications: Naprosyn 500 mg tablets: take 1 orally every 12 hours as needed for pain. Dispense twenty (20). No refills. Substitution is permissible. Follow-up: Follow up with your doctor in about one week even if well. Call for an appointment. Summary of care provided to patient. Understanding of the discharge instructions verbalized by patient. ADDITIONAL INFORMATION Neck Pain [No Trauma] There are several possible causes of neck pain without injury: You can get a minor ligament sprain or muscle strain from a sudden minor neck movement. Sleeping with your neck in an awkward position can also cause this. Some persons respond to emotional stress by tensing the muscles of their neck, shoulders and upper back. Chronic spasm in these muscles can cause neck pain and sometimes headaches. Gradualwear and tearof the joints in the spine can cause degenerative arthritis.This can be a source of occasional or chronic neck pain. With aging or repeated small injuries to the neck, the spinal disks (the cushions between each spinal bone) may bulge and put pressure on a nearby spinal nerve. This causes tingling, pain or numbness spreading from the neck to the shoulder, arm or hand on one side. Acute neck pain usually gets better in one to two weeks. Neck pain related to disk disease, arthritis in the spinal joints or spinal stenosis (narrowing of the spinal canal) can become chronic and last for months or years. Unless you had a forceful physical injury (for example, a car accident or fall), X-rays are usually not ordered for the initial evaluation of neck pain. If pain continues and does not respond to medical treatment, x-rays and other tests may be performed at a later time. Home Care: Rest and relax the muscles. Use a comfortable pillow that supports the head and keeps the spine in a neutral position. The position of the head should not be tilted forward or backward. A rolled up towel may help for a custom fit. Some persons find relief with heat (hot shower, hot bath or heating pad) and massage, while others prefer cold packs (crushed or cubed ice in a plastic bag, wrapped in a towel) . Try both and use the method that feels best for 20 minutes several times a day. You may use acetaminophen (Tylenol) or ibuprofen (Motrin, Advil) to control pain, unless another medicine was prescribed. [ NOTE : If you have chronic liver or kidney disease or ever had a stomach ulcer or GI bleeding, talk with your doctor before using these medicines.] Follow Up with your physician or this facility if your symptoms do not show signs of improvement after one week. Physical therapy or further tests may be needed. [NOTE: A radiologist will review any X-rays or CT scans that were taken. We will notify you of any new findings that may affect your care.] Get Prompt Medical Attention if any of the following occur: Pain becomes worse or spreads into one or both arms Weakness or numbness in one or both arms Increasing headache Neck swelling, difficulty or painful swallowing Fever of 100.4F (38C) or higher, or as directed by your healthcare provider Drug Abuse Use and abuse of such drugs as marijuana, amphetamines (speed, crank), cocaine, heroin or prescription pain medicines (Vicodin, codeine), sedatives and sleeping pills (Valium, Klonopin), PCP, mescaline and LSD may lead to addiction or dependence. Once this occurs, you are at greater risk for any of the following: Craving for the drug and unable to stop using the drug even though you think you want to stop (psychological dependence) Drug withdrawal symptoms if you stop taking the drug (physical dependence) Loss of your job or your family Arrest, conviction and long term sentence for possession of an illegal substance or for driving under the influence of such a substance Accidental injuries to yourself or others while you are under the influence of the drug (in a car or at home). HIV infection (much greater risk if you use IV drugs) Other sexually transmitted diseases (herpes, chlamydia, gonorrhea and others) Severe and fatal infection of the heart valves (if you use IV drugs) Stroke, heart attack, hepatitis B or C, kidney failure from overdose Home Care: Admit you have a drug problem. Ask for help from your family and close friends. Seek professional help. This could be in the form of individual psychotherapy or counseling or an outpatient, inpatient, or residential drug treatment program. Join a self-help group for drug abuse. Avoid friends who abuse drugs themselves or tempt you to continue abusing drugs. Eat a balanced diet and begin a regular exercise program. Follow Up with your doctor or as advised by our staff. Contact one of the resources below for help. National [place] on Alcoholism and Drug Dependence www.ncadd.org 099-579-MTVI Narcotics Anonymous www.na.org 303-333-5791 National Alcohol and Substance Abuse Information Center (for referral to treatment programs) www.mimoOn 644-476-0044 Get Prompt Medical Attention if any of the following occur: Agitation, anxiety, unable to sleep Unintended weight loss (more than 10 to 15 pounds over 3 months) Seizure Chest pain Fever of 100.4F (38C) or higher, or as directed by your healthcare provider Excess drowsiness or inability to be awakened Shortness of breath Slow breathing under 8 breaths per minute Cough with colored sputum Redness, swelling or tenderness at an injection site Opiate Abuse Use and abuse of heroin or prescription pain medicines (Vicodin, codeine) may lead to physical ADDICTION or psychological DEPENDENCE. Once this occurs, you are at greater risk for any of the following: - Craving for the drug and unable to stop using the drug even though you think you want to stop (psychological dependence) - Drug withdrawal symptoms if you stop taking the drug (physical addiction) - Loss of your job or your family - Arrest, conviction and long term sentence for possession of an illegal substance or for driving under the influence of such a substance - Accidental injuries to yourself or others while you are under the influence of the drug (in a car or at home). - HIV infection (much greater risk if you use IV drugs) - Other sexually transmitted diseases (Herpes, chlamydia, gonorrhea and others) - Severe and fatal infection of the heart valves (if you use IV drugs) - Stroke, heart attack, hepatitis B or C, kidney failure - from overdose Home Care: 1) Admit you have a drug problem. Ask for help from your family and close friends. 2) Seek professional help. This could be individual psychotherapy, counseling, or a drug treatment program (outpatient or residential). 3) Join a self-help group for drug abuse. 4) Avoid friends who abuse drugs themselves or tempt you to continue your habit 5) Eat a balanced diet and begin a regular exercise program. Follow Up with your doctor or as advised by our staff. Contact one of the resources below for help. [place] on Alcoholism and Drug Dependence, www.ncadd.org 377-826-SPKV Narcotics Anonymous (check your phone book for a local listing or call 257-388-3853) www.na.org National Alcohol and Substance Abuse Information Center (for referral to treatment programs) Www.SiteBrains 596-868-5706 Get Prompt Medical Attention if any of the following occur: -- Symptoms of withdrawal (agitation, anxiety, trembling, sweats, diarrhea, unable to sleep) -- Chest pain -- Unexplained fever over 100.4 F (38.0 C) -- Excessive drowsiness or inability to be awakened -- Slow breathing under 8 breaths per minute -- Shortness of breath or cough with colored sputum -- Redness, swelling or tenderness at an injection site Pain Management: Chronic You have a painful condition that has required frequent use of narcotic-type pain medicine. We would like to see that you receive the best possible care for your problem. To achieve this, you must have apersonal physician who can supervise a treatment plan for you. You may locate a personal physician on your own or contact one of the doctors whose name has been given to you. If your physician determines that you need to visit the ER for pain control, that doctor should provide you with a PAIN CONTRACT. This is a letter from your doctor which describes what pain medicine you may receive, how much and how often. You sign it agreeing to the terms of the treatment plan. Bring this with you each time you come to this facility. It will help the Emergency Physician provide the proper treatment for you with minimal delay. Please Note: IN THE FUTURE YOU WILL NOT BE ABLE TO RECEIVE Narcotic Pain Medicine From This Facility Without A Pain Contract Or Telephone Approval From Your Personal Physician. Naproxen Sodium Oral tablet What is this medicine? NAPROXEN (na PROX en) is a non-steroidal anti-inflammatory drug (NSAID). It is used to reduce swelling and to treat pain. This medicine may be used for dental pain, headache, or painful monthly periods. It is also used for painful joint and muscular problems such as arthritis, tendinitis, bursitis, and gout. How should I use this medicine? Take this medicine by mouth with a glass of water. Follow the directions on the prescription label. Take it with food if your stomach gets upset. Try to not lie down for at least 10 minutes after you take it. Take your medicine at regular intervals. Do not take your medicine more often than directed. Long-term, continuous use may increase the risk of heart attack or stroke. A special MedGuide will be given to you by the pharmacist with each prescription and refill. Be sure to read this information carefully each time. Talk to your shroudman regarding the use of this medicine in children. Special care may be needed. What side effects may I notice from receiving this medicine? Side effects that you should report to your doctor or health prompt care rn as soon as possible: black or bloody stools, blood in the urine or vomit blurred vision chest pain difficulty breathing or wheezing nausea or vomiting severe stomach pain skin rash, skin redness, blistering or peeling skin, hives, or itching slurred speech or weakness on one side of the body swelling of eyelids, throat, lips unexplained weight gain or swelling unusually weak or tired yellowing of eyes or skin Side effects that usually do not require medical attention (report to your doctor or health prompt care rn if they continue or are bothersome): constipation headache heartburn What may interact with this medicine? alcohol aspirin cidofovir diuretics lithium methotrexate other drugs for inflammation like ketorolac or prednisone pemetrexed probenecid warfarin What if I miss a dose? If you miss a dose, take it as soon as you can. If it is almost time for your next dose, take only that dose. Do not take double or extra doses. Where should I keep my medicine? Keep out of the reach of children. Store at room temperature between 15 and 30 degrees C (59 and 86 degrees F). Keep container tightly closed. Throw away any unused medicine after the expiration date. What should I tell my health care provider before I take this medicine? They need to know if you have any of these conditions: asthma cigarette smoker drink more than 3 alcohol containing drinks a day heart disease or circulation problems such as heart failure or leg edema (fluid retention) high blood pressure kidney disease liver disease stomach bleeding or ulcers an unusual or allergic reaction to naproxen, aspirin, other NSAIDs, other medicines, foods, dyes, or preservatives or trying to get breast-feeding What should I watch for while using this medicine? Tell your doctor or health prompt care rn if your pain does not get better. Talk to your doctor before taking another medicine for pain. Do not treat yourself. This medicine does not prevent heart attack or stroke. In fact, this medicine may increase the chance of a heart attack or stroke. The chance may increase with longer use of this medicine and in people who have heart disease. If you take aspirin to prevent heart attack or stroke, talk with your doctor or health prompt care rn. Do not take other medicines that contain aspirin, ibuprofen, or naproxen with this medicine. Side effects such as stomach upset, nausea, or ulcers may be more likely to occur. Many medicines available without a prescription should not be taken with this medicine. This medicine can cause ulcers and bleeding in the stomach and intestines at any time during treatment. Do not smoke cigarettes or drink alcohol. These increase irritation to your stomach and can make it more susceptible to damage from this medicine. Ulcers and bleeding can happen without warning symptoms and can cause . You may get drowsy or dizzy. Do not drive, use machinery, or do anything that needs mental alertness until you know how this medicine affects you. Do not stand or sit up quickly, especially if you are an older patient. This reduces the risk of dizzy or fainting spells. This medicine can cause you to bleed more easily. Try to avoid damage to your teeth and gums when you brush or floss your teeth. You have been given the following additional information: Neck Pain, No Trauma Drug Abuse Opiate Abuse Drug Seeking Behavior, Pain Contract Required Naproxen Sodium Oral tablet (Electronically signed by Sumaya Parks A.R.N.P. 12/06/2016 21:20)
--- NOTE | 2016-12-06 21:21 | ED MED RECONCILIATION SUMMARY ---
Patient: LUCRECIA FLORES Medication Reconciliation Report [facility] VisitID: [id number] [address] [place] [address] 31y, F Registration Date/Time: 12/06/2016 Weight: 59.4 kg Height/Length: 62 in. BMI: 24.0 ALLERGIES: Hydrocodone The patient's Home Medications are listed below: THE FOLLOWING MEDICATIONS NEED TO BE RECONCILED: Depo-Provera Intramuscular, every three months Ibuprofen Oral Melatonin Oral Percocet 1 every 6 hours - last one taken 0630 Vistaril Oral 25 mg, at bedtime zofran 4mg prn --1500 last one The source(s) of the original Home Medication information: Not obtained. The following Medications were given to the patient in the Emergency Department: None. The following Medications were prescribed to the patient: Naprosyn 500 mg tablets: take 1 orally every 12 hours as needed for pain. Dispense twenty (20). No refills. Substitution is permissible. -- Sumaya Parks A.R.N.P.
--- NOTE | 2016-12-06 21:21 | ED MAR SUMMARY ---
..... Medication Administration Record [facility] [address] [place], [place] [id number] Patient: LUCRECIA FLORES Visit ID: [id number] 31y, F Weight: 59.4 kg Height/Length: 62 in BMI: 24 ALLERGIES: Hydrocodone
--- NOTE | 2016-12-06 21:21 | ED MED RECONCILIATION SUMMARY ---
Patient: LUCRECIA FLORES Medication Reconciliation Report [facility] VisitID: [id number] [address] [place] [address] 31y, F Registration Date/Time: 12/06/2016 Weight: 59.4 kg Height/Length: 62 in. BMI: 24.0 ALLERGIES: Hydrocodone The patient's Home Medications are listed below: THE FOLLOWING MEDICATIONS NEED TO BE RECONCILED: Depo-Provera Intramuscular, every three months Ibuprofen Oral Melatonin Oral Percocet 1 every 6 hours - last one taken 0630 Vistaril Oral 25 mg, at bedtime zofran 4mg prn --1500 last one The source(s) of the original Home Medication information: Not obtained. The following Medications were given to the patient in the Emergency Department: None. The following Medications were prescribed to the patient: Naprosyn 500 mg tablets: take 1 orally every 12 hours as needed for pain. Dispense twenty (20). No refills. Substitution is permissible. -- Sumaya Parks A.R.N.P.
== END 2016-12-06 21:15 | disposition home or self-care (01) ==
LOC: ED SRH 18:55
DX: R11.2 Nausea with vomiting, unspecified (principal); M54.2 Cervicalgia; G89.29 Other chronic pain; F19.10 Other psychoactive substance abuse, uncomplicated; I10 Essential (primary) hypertension; F17.210 Nicotine dependence, cigarettes, uncomplicated; Z79.899 Other long term (current) drug therapy; Z88.5 Allergy status to narcotic agent

== ENCOUNTER 2017-03-07 16:56 | Emergency (ER) | payer OTHER ==
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
--- NOTE | 2017-03-08 08:48 | ED ORDER SUMMARY ---
..... Patient: LUCRECIA FLORES OrderSheet [facility] VisitID: [id number] [place] [address] 32y, F Registration Date/Time: 03/07/2017 ORDER SHEET Weight: 61.6 kg (stated) Allergies: Hydrocodone GENERAL ORDERS: CBC w Diff Urgent (17:10 03/07/2017 EKoroleva P.A.-C) (Ack 17:13 AMcQuoid ER Tech1) (17:25 MCook R.N.) Urine Urgent (17:10 03/07/2017 EKoroleva P.A.-C) (Ack 17:13 AMcQuoid ER Tech1) (17:40 MCook R.N.) Urine Drug Screen Urgent (17:10 03/07/2017 EKoroleva P.A.-C) (Ack 17:13 AMcQuoid ER Tech1) (17:40 MCook R.N.) BMP Urgent (17:10 03/07/2017 EKoroleva P.A.-C) (Ack 17:13 AMcQuoid ER Tech1) (17:25 MCook R.N.) (Cancelled: Other17:46 EKoroleva P.A.-C) TSH Urgent (17:10 03/07/2017 EKoroleva P.A.-C) (Ack 17:13 AMcQuoid ER Tech1) (17:25 MCook R.N.) Ethyl Alcohol Urgent (17:10 03/07/2017 EKoroleva P.A.-C) (Ack 17:13 AMcQuoid ER Tech1) (17:25 MCook R.N.) CMP Urgent (17:46 03/07/2017 EKoroleva P.A.-C) (Ack 17:48 Apryl) (17:48 Apryl) MEDICATION ORDERS: Motrin PO 800 mg (NOW) (17:46 03/07/2017 EKoroleva P.A.-C) (17:48 MCook R.N.) Tylenol PO 650 mg (NOW) (22:32 03/07/2017 EKoroleva P.A.-C) (Ack 22:38 HSoule) (22:41 HSoule) Motrin PO 200mg (NOW) (23:21 03/07/2017 WESTorojorge GomezC) (23:27 CFalmague R.N.) Nicoderm Topical 21 mg (NOW) (06:40 03/08/2017 RMarsden R.N. per protocol) (6:41 RMarsden R.N.) IV FLUIDS: ORDER SHEET NOTES: [Electronically signed by Kenan Dolan R.N. (14:44 03/08/2017)] [Electronically signed by Dc Teran MD (21:06 03/10/2017)] [Electronically locked/signed by Kenan Dolan R.N. (14:44 03/08/2017)]
--- NOTE | 2017-03-08 08:48 | ED ORDER SUMMARY ---
..... Patient: LUCRECIA FLORES OrderSheet [facility] VisitID: [id number] [place] [address] 32y, F Registration Date/Time: 03/07/2017 ORDER SHEET Weight: 61.6 kg (stated) Allergies: Hydrocodone GENERAL ORDERS: CBC w Diff Urgent (17:10 03/07/2017 EKoroleva P.A.-C) (Ack 17:13 AMcQuoid ER Tech1) (17:25 MCook R.N.) Urine Urgent (17:10 03/07/2017 EKoroleva P.A.-C) (Ack 17:13 AMcQuoid ER Tech1) (17:40 MCook R.N.) Urine Drug Screen Urgent (17:10 03/07/2017 EKoroleva P.A.-C) (Ack 17:13 AMcQuoid ER Tech1) (17:40 MCook R.N.) BMP Urgent (17:10 03/07/2017 EKoroleva P.A.-C) (Ack 17:13 AMcQuoid ER Tech1) (17:25 MCook R.N.) (Cancelled: Other17:46 EKoroleva P.A.-C) TSH Urgent (17:10 03/07/2017 EKoroleva P.A.-C) (Ack 17:13 AMcQuoid ER Tech1) (17:25 MCook R.N.) Ethyl Alcohol Urgent (17:10 03/07/2017 EKoroleva P.A.-C) (Ack 17:13 AMcQuoid ER Tech1) (17:25 MCook R.N.) CMP Urgent (17:46 03/07/2017 EKoroleva P.A.-C) (Ack 17:48 Apryl) (17:48 Apryl) MEDICATION ORDERS: Motrin PO 800 mg (NOW) (17:46 03/07/2017 EKoroleva P.A.-C) (17:48 MCook R.N.) Tylenol PO 650 mg (NOW) (22:32 03/07/2017 EKoroleva P.A.-C) (Ack 22:38 HSoule) (22:41 HSoule) Motrin PO 200mg (NOW) (23:21 03/07/2017 WESTorojorge GomezC) (23:27 CFalmague R.N.) Nicoderm Topical 21 mg (NOW) (06:40 03/08/2017 RMarsden R.N. per protocol) (6:41 RMarsden R.N.) IV FLUIDS: ORDER SHEET NOTES: [Electronically signed by Kenan Dolan R.N. (14:44 03/08/2017)] [Electronically signed by Dc Teran MD (21:06 03/10/2017)] [Electronically locked/signed by Kenan Dolan R.N. (14:44 03/08/2017)]
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
--- NOTE | 2017-03-10 21:07 | ED MED RECONCILIATION SUMMARY ---
Patient: LUCRECIA FLORES Medication Reconciliation Report [facility] VisitID: [id number] [address] [place] [address] 32y, F Registration Date/Time: 03/07/2017 Weight: 61.6 kg Height/Length: 64 in. BMI: 23.3 ALLERGIES: Hydrocodone The patient's Home Medications are listed below: THE FOLLOWING MEDICATIONS NEED TO BE RECONCILED: Depo-Provera Intramuscular, every three months Ibuprofen Oral Melatonin Oral NyQuil SEROquel Oral TraZODone HCl Oral Vistaril Oral 25 mg, at bedtime Wellbutrin (not taking) Zoloft (not taking) The source(s) of the original Home Medication information: Not obtained. The following Medications were given to the patient in the Emergency Department: Motrin [PO] PO 800 mg, administered: 03/07/2017 5:47:00 PM Tylenol [PO] PO 650 mg, administered: 03/07/2017 10:41:00 PM Motrin [PO] PO 200 mg, administered: 03/07/2017 11:27:00 PM NICODERM [TOPICAL] Topical 21 mg, administered: 03/08/2017 6:41:00 AM The following Medications were prescribed to the patient: None.
--- NOTE | 2017-03-10 21:07 | ED MED RECONCILIATION SUMMARY ---
Patient: LUCRECIA FLORES Medication Reconciliation Report [facility] VisitID: [id number] [address] [place] [address] 32y, F Registration Date/Time: 03/07/2017 Weight: 61.6 kg Height/Length: 64 in. BMI: 23.3 ALLERGIES: Hydrocodone The patient's Home Medications are listed below: THE FOLLOWING MEDICATIONS NEED TO BE RECONCILED: Depo-Provera Intramuscular, every three months Ibuprofen Oral Melatonin Oral NyQuil SEROquel Oral TraZODone HCl Oral Vistaril Oral 25 mg, at bedtime Wellbutrin (not taking) Zoloft (not taking) The source(s) of the original Home Medication information: Not obtained. The following Medications were given to the patient in the Emergency Department: Motrin [PO] PO 800 mg, administered: 03/07/2017 5:47:00 PM Tylenol [PO] PO 650 mg, administered: 03/07/2017 10:41:00 PM Motrin [PO] PO 200 mg, administered: 03/07/2017 11:27:00 PM NICODERM [TOPICAL] Topical 21 mg, administered: 03/08/2017 6:41:00 AM The following Medications were prescribed to the patient: None.
--- NOTE | 2017-03-10 21:07 | ED MAR SUMMARY ---
..... Medication Administration Record [facility] [address] [place] [address] Patient: LUCRECIA FLORES Visit ID: [id number] 32y, F Weight: 61.6 kg Height/Length: 64 in BMI: 23.3 ALLERGIES: Hydrocodone Given 17:47 03/07/2017 Crispin Mendez RAkbar Medication Administered: MOTRIN [PO], Dose: 800 mg Tablets PO. Medication Ordered: Motrin PO 800 mg (NOW). Given 22:41 03/07/2017 Sally Steiner, Medication Administered: TYLENOL [PO] (ACETAMINOPHEN), Dose: 650 mg Tablets PO. Medication Ordered: Tylenol PO 650 mg (NOW). Given 23:27 03/07/2017 Stefanie Jimenez R.N. Medication Administered: MOTRIN [PO], Dose: 200 mg PO. Medication Ordered: Motrin PO 200mg (NOW). Given 06:41 03/08/2017 Gina Lau RAkbar Medication Administered: NICODERM [TOPICAL], Dose: 21 mg Topical. Medication Ordered: Nicoderm Topical 21 mg (NOW).
--- NOTE | 2017-03-10 21:07 | ED DISCHARGE INSTRUCTIONS ---
Patient: LUCRECIA FLORES General Instructions [facility] VisitID: [id number] [place] [address] 32y, F Registration Date/Time: 03/07/2017 Suicidal ideation. Depression. Alcohol intoxication. Hyperthyroidism. ADDITIONAL INFORMATION Hyperthyroidism You have been diagnosed with hyperthyroidism, which means you have an overactive thyroid gland that produces too much thyroid hormone. This hormone is important to body growth and metabolism. If you have too much thyroid hormone many body processes speed up or overreact, causing a variety of symptoms. Your doctor may recommend thyroid-lowering medicines, radiation or surgery to treat your condition. Signs Of Hyperthyroidism (too much thyroid hormone, which can be a side effect of treatment for low thyroid): Restlessness, nervousness, tremor Increased appetite with weight loss Excess sweating Palpitations or irregular heartbeat Feeling cold, or cold hands and/or feet Signs Of Hypothyroidism (too little thyroid hormone): Fatigue or sluggishness Difficulty concentrating or thinking clearly; forgetfulness Dry skin, hair loss Depression Unexpected weight gain Feeling overheated Home Care: Take your medicine exactly as directed at the same time every day. Keep your pills in a container that is labeled with the days of the week. This will help you remember whether youve taken your medicine each day. Never stop treatment on your own. If you do, your symptoms will return. Follow Up with your doctor or as advised by our staff. Your thyroid level will need to be monitored for the rest of your life. During your routine visits, tell your doctor about any symptoms such as the ones listed below. Get Prompt Medical Attention if any of the following occur: Loss of consciousness Extreme fatigue Puffy hands, face, or feet Chest pain or shortness of breath Trouble breathing Fast or irregular heartbeat Confusion You have been given the following additional information: Hyperthyroidism (Electronically signed by Dc Teran MD 03/10/2017 21:06)
--- NOTE | 2017-03-10 21:07 | ED MAR SUMMARY ---
..... Medication Administration Record [facility] [address] [place] [address] Patient: LUCRECIA FLORES Visit ID: [id number] 32y, F Weight: 61.6 kg Height/Length: 64 in BMI: 23.3 ALLERGIES: Hydrocodone Given 17:47 03/07/2017 Crispin Mendez RAkbar Medication Administered: MOTRIN [PO], Dose: 800 mg Tablets PO. Medication Ordered: Motrin PO 800 mg (NOW). Given 22:41 03/07/2017 Sally Steiner, Medication Administered: TYLENOL [PO] (ACETAMINOPHEN), Dose: 650 mg Tablets PO. Medication Ordered: Tylenol PO 650 mg (NOW). Given 23:27 03/07/2017 Stefanie Jimenez R.N. Medication Administered: MOTRIN [PO], Dose: 200 mg PO. Medication Ordered: Motrin PO 200mg (NOW). Given 06:41 03/08/2017 Gina Lau RAkbar Medication Administered: NICODERM [TOPICAL], Dose: 21 mg Topical. Medication Ordered: Nicoderm Topical 21 mg (NOW).
--- NOTE | 2017-03-10 21:07 | ED DISCHARGE INSTRUCTIONS ---
Patient: LUCRECIA FLORES General Instructions [facility] VisitID: [id number] [place] [address] 32y, F Registration Date/Time: 03/07/2017 Suicidal ideation. Depression. Alcohol intoxication. Hyperthyroidism. ADDITIONAL INFORMATION Hyperthyroidism You have been diagnosed with hyperthyroidism, which means you have an overactive thyroid gland that produces too much thyroid hormone. This hormone is important to body growth and metabolism. If you have too much thyroid hormone many body processes speed up or overreact, causing a variety of symptoms. Your doctor may recommend thyroid-lowering medicines, radiation or surgery to treat your condition. Signs Of Hyperthyroidism (too much thyroid hormone, which can be a side effect of treatment for low thyroid): Restlessness, nervousness, tremor Increased appetite with weight loss Excess sweating Palpitations or irregular heartbeat Feeling cold, or cold hands and/or feet Signs Of Hypothyroidism (too little thyroid hormone): Fatigue or sluggishness Difficulty concentrating or thinking clearly; forgetfulness Dry skin, hair loss Depression Unexpected weight gain Feeling overheated Home Care: Take your medicine exactly as directed at the same time every day. Keep your pills in a container that is labeled with the days of the week. This will help you remember whether youve taken your medicine each day. Never stop treatment on your own. If you do, your symptoms will return. Follow Up with your doctor or as advised by our staff. Your thyroid level will need to be monitored for the rest of your life. During your routine visits, tell your doctor about any symptoms such as the ones listed below. Get Prompt Medical Attention if any of the following occur: Loss of consciousness Extreme fatigue Puffy hands, face, or feet Chest pain or shortness of breath Trouble breathing Fast or irregular heartbeat Confusion You have been given the following additional information: Hyperthyroidism (Electronically signed by Dc Teran MD 03/10/2017 21:06)
== END 2017-03-08 09:15 ==
LOC: ED SRH 16:56
DX: R45.851 Suicidal ideations (principal); F32.9 Major depressive disorder, single episode, unspecified; F10.129 Alcohol abuse with intoxication, unspecified; Y90.8 Blood alcohol level of 240 mg/100 ml or more; E05.90 Thyrotoxicosis, unspecified without thyrotoxic crisis or storm; I10 Essential (primary) hypertension; Z79.899 Other long term (current) drug therapy
CPT/HCPCS: 90047; 90074; 90100; 92010; 92760; 92761; 92762; 92763; 92764; 92765; 92766; 92767; 93070; 93140; 95059